=== PATIENT | female | born 1975 | race Caucasian/White ===

== ENCOUNTER 2020-09-05 18:03 | Inpatient (IN) ==
[2020-09-05] MEDS ORDERED: ONDANSETRON INJ 2 MG/ML 2 ML VIAL IV STA (19:28)
[2020-09-05] MEDS ORDERED: SODIUM CHLORIDE 0.9% 1000ML 2,000 ML IV ONE (19:28)
[2020-09-05] MEDS ORDERED: ACETAMINOPHEN 1,000 MG/100 ML VIAL IV STA (19:28)
[2020-09-05] MEDS ORDERED: MoRPHine SULFATE 10 MG/ML CARP/VIAL IV STA (19:28)
[2020-09-05 19:29] LABS: Basophils # (auto) 0.02 K/uL (0-0.2); Basophils % (auto) 0.1 %; Eosinophils # (auto) 0.02 K/uL (0-0.5); Eosinophils % (auto) 0.1 %; Hematocrit (blood only) 35.4 % (37-47); Hemoglobin 12.6 g/dL (12.0-16.0); Immature Granulocytes # (auto) 0.07 K/uL (0.00-0.02); Immature Granulocytes % (auto) 0.4 %; Lymphocytes % (auto) 7.6 %; Mean Corpuscular Hemoglobin 32.9 pg (25-34); Mean Corpuscular Hgb Conc 35.6 g/dL (32-36); Mean Corpuscular Volume 92.4 fL (80-100); Mean Platelet Volume 10.4 fL (7.4-10.4); Monocytes # (auto) 0.83 K/uL (0.11-0.59); Monocytes % (auto) 4.5 %; Neutrophils % (auto) 87.3 %; Platelet Count 407 K/uL (130-400); RDW Coefficient of Variation 12.5 % (11.5-14.5); RDW Standard Deviation 42.8 fL (36.4-46.3); Red Blood Count 3.83 M/uL (4.2-5.4); White Blood Count 18.34 K/uL (4.8-10.8)
[2020-09-05 19:36] LABS: Appearance Urine Clear (Clear); Blood Urine 1+ (Negative); Color Urine Dark Yellow; Epithelial Cell Urine Auto >30 /lpf (0-5); Glucose Urine UA Negative (Negative); Ketones Urine 1+ (Negative); Leukocyte Esterase Urine Negative (Negative); Nitrite Urine Positive (Negative); Protein Urine 1+ (Negative); Specific Gravity Urine 1.039 (1.000-1.030); Urobilinogen Urine Positive (Negative); pH Urine 5.5 (4.5-7.5)
[2020-09-05 19:37] LABS: Bilirubin Urine 1+ (Negative)
[2020-09-05] MEDS ORDERED: MoRPHine SULFATE 2 MG/ML CARP ONE ×3 (19:39→22:03)
--- NOTE | 2020-09-05 19:39 | Emergency Department Note ---
Impression & Plan Hemorrhagic cyst of left ovary, Abnormal vaginal bleeding, Leukocytosis, Elevated lactic acid level ED Provider Note NAME: TERRI FERRARO AGE: 45 SEX: F ARRIVES VIA: Walk-In INFORMANT: Patient, ED PROVIDER(S): Taye Bob MD CHIEF COMPLAINT: Abdominal pain, ovarian cyst. PLAN: Disposition: Admit to OR. MEDICAL DECISION MAKING: The patient is a pleasant 45-year-old woman who presents to the emergency department referred by her PCP for worsening left lower quadrant pain in setting of having increased pain over the past week seen at [facility] [address] and ultrasound performed showing 8 cm left hemorrhagic ovarian cyst where plan was for outpatient [employer] follow-up however she saw her PCP today for worsening symptoms and blood work was performed showing increased white count to 18K up from 14K 2 days ago in the setting of the patient reporting persistent fever over the past several days of 101-102 with waxing and waning left-sided pain and associated nausea. She denies any cough, congestion, diarrhea or urinary symptoms. She reports having early onset of her menstrual cycle which is 2 weeks early with vaginal bleeding that is on par with her typical menstrual cycles where she is using 5-6 tampons daily. Denies any history of vaginal discharge pain or concern for STDs. She reports she has been having irregular cycles over the past 6 months with intermittent pain beginning approximately 2 months ago when per her report smaller several ovarian cysts were seen on the left side at that time. She denies any known COVID-19 exposures. She reports that her understanding is there was concern for possible intermittent ovarian torsion. On arrival the patient is uncomfortable but no acute distress, afebrile with heart rate in the 120s and vital signs otherwise stable. She has mild left lower quadrant/adnexal tenderness without guarding or rebound. WBC 18.3K with neutrophil predominance. Initial lactate 2.4 improved to 1.5, wnl, following IVF hydration and empiric Zosyn. Chemistry without acidosis. Potassium 2.9 with repletion provided. LFTs without significant abnormality. Hcg negative. UA suspicious for infection with nitrites although with epithelial cells present. Covid-19 PCR negative. Influenza and RSV PCR also negative. Case was discussed with Dr. Montilla, OB on-call who the patient had scheduled appointment with next week. We agreed to proceed with pelvic US to reassess shana ent's cyst. US completed and re-demonstrates enlarged left ovary with 7.2 x 8.1 x 8.4 cm complex cystic lesion, suspected to be hemorrhagic cyst. Dr. Montilla was updated and evaluated patient at the bedside. Plan to take patient to OR tonight. Maintenance fluid continued. Patient admitted to OR. Triage Nursing notes reviewed and agree them. Additional history obtained from [facility] records Prior medical records reviewed Vital Signs: reviewed and remarkable for tachycardia. Differential diagnosis: Appendicitis, ovarian cyst, ovarian torsion, ectopic , TOA, PID, infections, diverticulitis, UTI, obstruction, mesenteric ischemia, aortic pathology, inflammatory bowel disease, renal colic, PUD, pancreatitis, biliary pathology, hernia, volvulus, constipation, as well as other pathologies. ER treatment provided: See below. Diagnostics interpreted by me: Cardiac Monitoring: An order for continuous cardiac monitoring was placed and demonstrated sinus tachycardia, 126 bpm, no ectopy. Laboratory studies: See below Imaging studies: STATRAD Preliminary Findings Only See Final Report For Complete Findings US PELVIC/ENDOVAG: Cervical nabothian cyst. Uterus and endometrium are otherwise unremarkable. Normal right ovary. No torsion. Left ovary enlarged by 7.2 x 8.1 x 8.4 cm complex cystic lesion, possibly hemorrhagic cyst. No evidence of left ovarian torsion. Short interval pelvic ultrasound follow-up (6-12 weeks) is recommended to ensure resolution. Mild free pelvic fluid. Radiologist: Elia Alfonso M.D. Consultation(s): Dr. Montlila, OB on-call. HPI: The patient is a pleasant 45-year-old woman who presents to the emergency department referred by her PCP for worsening left lower quadrant pain in setting of having increased pain over the past week seen at [facility] [address] and ultrasound performed showing 8 cm left hemorrhagic ovarian cyst where plan was for outpatient [employer] follow-up however she saw her PCP today for worsening symptoms and blood work was performed showing increased white count to 18K up from 14K 2 days ago in the setting of the patient reporting persistent fever over the past several days of 101-102 with waxing and waning left-sided pain and associated nausea. She denies any cough, congestion, diarrhea or urinary symptoms. She reports having early onset of her menstrual cycle which is 2 weeks early with vaginal bleeding that is on par with her typical menstrual cycles where she is using 5-6 tampons daily. Denies any history of vaginal d ischarge pain or concern for STDs. She reports she has been having irregular cycles over the past 6 months with intermittent pain beginning approximately 2 months ago when per her report smaller several ovarian cysts were seen on the left side at that time. She denies any known COVID-19 exposures. She reports that her understanding is there was concern for possible intermittent ovarian torsion. ROS: See above HPI for pertinent positives & negatives. A total of 10 systems reviewed and were otherwise negative. PAST MEDICAL HISTORY:See Below PAST SURGICAL HISTORY:See Below FAMILY HISTORY:See Below SOCIAL HISTORY:See Below HOME MEDICATIONS:See Below ALLERGIES:See Below VITALS:See Below PHYSICAL EXAMINATION: GENERAL: Awake, alert, uncomfortable-appearing, in no distress HENT: Normocephalic, atraumatic. Oropharynx with dry mucous membranes and otherwise unremarkable. EYES: Normal conjunctiva. Sclera non-icteric. NECK: Supple. No nuchal rigidity. FROM. No JVD. RESPIRATORY: Clear to auscultation. CARDIAC: Tachycardic rate, normal rhythm. Extremities warm and well perfused. Pulses equal. ABDOMEN: Soft, non-distended. Mild LLQ/adnexal tenderness to palpation. No rebound or guarding. No masses. RECTAL: Deferred. MUSCULOSKELETAL: Chest examination reveals no tenderness. The back is symmetrical on inspection without obvious abnormality. There is no CVA tenderness to palpation. No joint edema. LOWER EXTREMITIES: Calves are equal size bilaterally and non-tender. No edema. No discoloration. NEURO: Normal sensorium. No sensory or motor deficits noted. SKIN: No rash or jaundice noted. ED COURSE: Critical Care: I have personally spent greater than 45 minutes of critical care time in the direct management of this patient. This includes bedside care, interpretation of diagnostic studies, and testing, discussion with consultants, patient, and family members, and other required patient management activities. This 45 minutes is in excess of all separately billable procedures. Taye Bob MD Past Med/Surg History Medical History Abnormal vaginal bleeding Dilated pancreatic duct Hemorrhagic cyst of left ovary Surgical History History of oral surgery Family History Father Myocardial infarction Afib Mother Diabetes Osteoporosis Hypertension Dyslipidemia Stroke Grandfather Myocardial infarction Denies family history of Ovarian cancer Prostate cancer Breast cancer Colorectal cancer Social History Smoking Status: Current every day smoker Tobacco Type: Cigarettes and E-cigarettes / Vaping Hx Alcohol Use: No Hx Substance Use: No Preferred Language: Frisian Communication Ability: Effective Visual Impairment: No Limitations Hearing Ability: Normal [place] Paver Required: No marital status: Current Living Situation: Family Current Living Situation Comment: mom, and daughter current occupational status: employed 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 [employer] Feels Safe at Home: Yes Dental Care, Regularly: No Seatbelt Use: always Sunscreen Use: No Allergies Allergies Allergy/AdvReac Type Severity Reaction Status Date / Time pramipexole [From Mirapex] Allergy Unknown Verified 09/05/20 19:33 Home Meds Home Medications Medication Instructions Recorded Confirmed acetaminophen [Tylenol Extra 1,000 mg PO Q6H PRN 09/05/20 09/05/20 Strength] Previous Rx's Medication Instructions Recorded ondansetron HCl 4 mg tablet 4 mg PO Q8H PRN #30 tab 06/15/20 Results & Data (ED) Vital Signs Vital Signs - 24 hr 09/05/20 18:13 09/05/20 19:37 09/05/20 19:40 Temperature 37.4 C Temperature Source Temporal Artery Scan Pulse Rate 126 H 112 H 113 H Pulse Rate [Apical] Pulse Rate from SpO2 Sensor 113 H 112 H Respiratory Rate 18 22 19 Respiratory Effort / Characteristics Non-Labored Respiratory Depth Normal Blood Pressure 158/82 H 126/91 Blood Pressure [Left Arm] Blood Pressure Mean 107 102 Blood Pressure Mean [Left Arm] Blood Pressure Position Sitting Blood Pressure Position [Left Arm] Pulse Oximetry 99 99 98 Oxygen Delivery Method Room Air Room Air Room Air Oxygen Flow Rate Sepsis Recent Fever Within 48 Hours Yes Sepsis New/Unexplained Change in Mental Status No Sepsis Action Taken by Nursing No Action Required 09/05/20 19:50 09/05/20 20:00 09/05/20 20:01 Temperature Temperature Source Pulse Rate 115 H 111 H 112 H Pulse Rate [Apical] Pulse Rate from SpO2 Sensor 115 H Respiratory Rate 28 H 29 H 23 Respiratory Effort / Characteristics Respiratory Depth Blood Pressure 125/83 Blood Pressure [Left Arm] Blood Pressure Mean 97 Blood Pressure Mean [Left Arm] Blood Pressure Position Blood Pressure Position [Left Arm] Pulse Oximetry 98 Oxygen Delivery Method Room Air Room Air Room Air Oxygen Flow Rate Sepsis Recent Fever Within 48 Hours Sepsis New/Unexplained Change in Mental Status Sepsis Action Taken by Nursing 09/05/20 20:10 09/05/20 20:20 09/05/20 20:30 Temperature Temperature Source Pulse Rate 117 H 114 H 112 H Pulse Rate [Apical] Pulse Rate from SpO2 Sensor 118 H 111 H Respiratory Rate 24 33 H 25 H Respiratory Effort / Characteristics Respiratory Depth Blood Pressure 119/71 Blood Pressure [Left Arm] Blood Pressure Mean 87 Blood Pressure Mean [Left Arm] Blood Pressure Position Blood Pressure Position [Left Arm] Pulse Oximetry 98 100 Oxygen Delivery Method Room Air Room Air Room Air Oxygen Flow Rate Sepsis Recent Fever Within 48 Hours Sepsis New/Unexplained Change in Mental Status Sepsis Action Taken by Nursing 09/05/20 20:40 09/05/20 20:50 09/05/20 21:00 Temperature Temperature Source Pulse Rate 109 H 106 H 111 H Pulse Rate [Apical] Pulse Rate from SpO2 Sensor 109 H 106 H 111 H Respiratory Rate 27 H 18 22 Respiratory Effort / Characteristics Respiratory Depth Blood Pressure 108/68 Blood Pressure [Left Arm] Blood Pressure Mean 81 Blood Pressure Mean [Left Arm] Blood Pressure Position Blood Pressure Position [Left Arm] Pulse Oximetry 98 98 98 Oxygen Delivery Method Room Air Room Air Room Air Oxygen Flow Rate Sepsis Recent Fever Within 48 Hours Sepsis New/Unexplained Change in Mental Status Sepsis Action Taken by Nursing 09/05/20 21:59 09/05/20 22:00 09/05/20 22:10 Temperature Temperature Source Pulse Rate 106 H 105 H 107 H Pulse Rate [Apical] Pulse Rate from SpO2 Sensor 104 H 107 H Respiratory Rate 26 H 24 Respiratory Effort / Characteristics Respiratory Depth Blood Pressure 107/65 Blood Pressure [Left Arm] Blood Pressure Mean 79 Blood Pressure Mean [Left Arm] Blood Pressure Position Blood Pressure Position [Left Arm] Pulse Oximetry 98 98 Oxygen Delivery Method Room Air Room Air Room Air Oxygen Flow Rate Sepsis Recent Fever Within 48 Hours Sepsis New/Unexplained Change in Mental Status Sepsis Action Taken by Nursing 09/05/20 22:20 09/05/20 22:30 09/05/20 22:31 Temperature Temperature Source Pulse Rate 104 H 102 H 99 H Pulse Rate [Apical] Pulse Rate from SpO2 Sensor 105 H 102 H 99 H Respiratory Rate 21 24 15 Respiratory Effort / Characteristics Respiratory Depth Blood Pressure 113/79 Blood Pressure [Left Arm] Blood Pressure Mean 90 Blood Pressure Mean [Left Arm] Blood Pressure Position Blood Pressure Position [Left Arm] Pulse Oximetry 98 99 99 Oxygen Delivery Method Room Air Room Air Room Air Oxygen Flow Rate Sepsis Recent Fever Within 48 Hours Sepsis New/Unexplained Change in Mental Status Sepsis Action Taken by Nursing 09/05/20 22:40 09/05/20 22:50 09/05/20 23:00 Temperature Temperature Source Pulse Rate 107 H 109 H 105 H Pulse Rate [Apical] Pulse Rate from SpO2 Sensor 107 H 110 H 109 H Respiratory Rate 21 19 34 H Respiratory Effort / Characteristics Respiratory Depth Blood Pressure 105/78 Blood Pressure [Left Arm] Blood Pressure Mean 87 Blood Pressure Mean [Left Arm] Blood Pressure Position Blood Pressure Position [Left Arm] Pulse Oximetry 99 99 99 Oxygen Delivery Method Room Air Room Air Room Air Oxygen Flow Rate Sepsis Recent Fever Within 48 Hours Sepsis New/Unexplained Change in Mental Status Sepsis Action Taken by Nursing 09/05/20 23:01 09/06/20 01:09 09/06/20 03:36 Temperature 36.8 C Temperature Source Oral Pulse Rate 108 H 101 H Pulse Rate [Apical] 149 H Pulse Rate from SpO2 Sensor 109 H Respiratory Rate 28 H 16 30 H Respiratory Effort / Characteristics Respiratory Depth Blood Pressure 100/71 Blood Pressure [Left Arm] 152/109 H Blood Pressure Mean Blood Pressure Mean [Left Arm] 123 Blood Pressure Position Blood Pressure Position [Left Arm] Lying Pulse Oximetry 98 99 92 Oxygen Delivery Method Room Air Room Air Oxygen Flow Rate 6 Sepsis Recent Fever Within 48 Hours Sepsis New/Unexplained Change in Mental Status Sepsis Action Taken by Nursing 09/06/20 03:42 09/06/20 03:52 09/06/20 04:02 Temperature 36.8 C Temperature Source Oral Oral Pulse Rate Pulse Rate [Apical] 142 H 146 H 140 H Pulse Rate from SpO2 Sensor Respiratory Rate 25 H 24 24 Respiratory Effort / Characteristics Respiratory Depth Blood Pressure Blood Pressure [Left Arm] 161/115 H 166/90 H 159/98 H Blood Pressure Mean Blood Pressure Mean [Left Arm] 130 115 118 Blood Pressure Position Blood Pressure Position [Left Arm] Lying Lying Lying Pulse Oximetry 89 L 91 91 Oxygen Delivery Method Oxygen Flow Rate 6 6 6 Sepsis Recent Fever Within 48 Hours Sepsis New/Unexplained Change in Mental Status Sepsis Action Taken by Nursing 09/06/20 04:22 09/06/20 04:37 09/06/20 05:00 Temperature 36.7 C Temperature Source Oral Oral Pulse Rate Pulse Rate [Apical] 139 H 131 H Pulse Rate from SpO2 Sensor Respiratory Rate 24 24 24 Respiratory Effort / Characteristics Respiratory Depth Blood Pressure Blood Pressure [Left Arm] 144/89 H 139/80 128/72 Blood Pressure Mean Blood Pressure Mean [Left Arm] 107 99 90 Blood Pressure Position Blood Pressure Position [Left Arm] Sitting Lying Lying Pulse Oximetry 89 L 91 95 Oxygen Delivery Method Oxygen Flow Rate 6 4 Sepsis Recent Fever Within 48 Hours Sepsis New/Unexplained Change in Mental Status Sepsis Action Taken by Nursing Laboratory Data Result diagrams: 09/05/20 19:17 09/05/20 19:17 Lab Results 09/05/20 09/05/20 09/05/20 Range/Units 19:17 19:17 19:17 WBC 18.34 H (4.8-10.8) K/uL RBC 3.83 L (4.2-5.4) M/uL Hgb 12.6 (12.0-16.0) g/dL Hct 35.4 L (37-47) % MCV 92.4 (80-100) fL MCH 32.9 (25-34) pg MCHC 35.6 (32-36) g/dL RDW Std Deviation 42.8 (36.4-46.3) fL RDW Coeff of Herberth 12.5 (11.5-14.5) % Plt Count 407 H (130-400) K/uL MPV 10.4 (7.4-10.4) fL Immature Gran % (Auto) 0.4 % Neut % (Auto) 87.3 % Lymph % (Auto) 7.6 % Slope % (Auto) 4.5 % Eos % (Auto) 0.1 % Baso % (Auto) 0.1 % Neut # (Auto) 16.00 H (1.4-6.5) K/uL Lymph # (Auto) 1.40 (1.2-3.4) K/uL Slope # (Auto) 0.83 H (0.11-0.59) K/uL Eos # (Auto) 0.02 (0-0.5) K/uL Baso # (Auto) 0.02 (0-0.2) K/uL Immature Gran # (Auto) 0.07 H (0.00-0.02) K/uL Sodium 140 (136-145) mmol/L Potassium 2.9 L (3.5-5.1) mmol/L Chloride 105 (98-107) mmol/L Carbon Dioxide 28 (21-32) mmol/L Anion Gap 7.0 (3-11) BUN 10 (7-18) mg/dl Creatinine 0.77 (0.6-1.2) mg/dl Est Cr Clr Drug Dosing 73.1 ml/min Est GFR ( Amer) 106.6 Est GFR (Non-Af Amer) 91.9 BUN/Creatinine Ratio 12.5 (10-20) Glucose 90 (70-99) mg/dl Lactate (0.4-2.0) mmol/L Calcium 8.6 (8.5-10.1) mg/dl Total Bilirubin 0.4 (0.2-1) mg/dl AST 8 L (15-37) U/L ALT 13 (12-78) U/L Alkaline Phosphatase 114 (45-117) U/L Total Protein 8.0 (6.4-8.2) gm/dl Albumin 2.7 L (3.4-5.0) gm/dl Globulin 5.3 H (2.5-4.0) gm/dl Albumin/Globulin Ratio 0.5 L (0.9-2) HCG, Qual (Negative) Urine Color Dark Yellow Urine Appearance Clear (Clear) Urine pH 5.5 (4.5-7.5) Ur Specific [place] 1.039 H (1.000-1.030) Urine Protein 1+ H (Negative) Urine Glucose (UA) Negative (Negative) Urine Ketones 1+ H (Negative) Urine Blood 1+ H (Negative) Urine Nitrite Positive A (Negative) Urine Bilirubin 1+ H (Negative) Urine Urobilinogen Positive H (Negative) Ur Leukocyte Esterase Negative (Negative) Urine WBC (Auto) 5-10 H (0-5) /hpf Urine RBC (Auto) 5-10 H (0-4) /hpf U Hyaline Cast (Auto) 10-30 H (0-5) /lpf U Epithel Cells (Auto) >30 H (0-5) /lpf Urine Bacteria (Auto) 1+ H (Negative) Ur Renal Epithelial Cell Not Reportable Urine Mucus Present A (None Prsent) POC Ur Test (NEG) COVID-19 Eval Order SARS-CoV-2 (PCR) (Negative) Influenza Type A (PCR) (Neg) Influenza Type B (PCR) (Neg) RSV (RT-PCR) (Neg) 09/05/20 09/05/20 09/05/20 Range/Units 19:17 19:17 20:25 WBC (4.8-10.8) K/uL RBC (4.2-5.4) M/uL Hgb (12.0-16.0) g/dL Hct (37-47) % MCV (80-100) fL MCH (25-34) pg MCHC (32-36) g/dL RDW Std Deviation (36.4-46.3) fL RDW Coeff of Herberth (11.5-14.5) % Plt Count (130-400) K/uL MPV (7.4-10.4) fL Immature Gran % (Auto) % Neut % (Auto) % Lymph % (Auto) % Slope % (Auto) % Eos % (Auto) % Baso % (Auto) % Neut # (Auto) (1.4-6.5) K/uL Lymph # (Auto) (1.2-3.4) K/uL Slope # (Auto) (0.11-0.59) K/uL Eos # (Auto) (0-0.5) K/uL Baso # (Auto) (0-0.2) K/uL Immature Gran # (Auto) (0.00-0.02) K/uL Sodium (136-145) mmol/L Potassium (3.5-5.1) mmol/L Chloride (98-107) mmol/L Carbon Dioxide (21-32) mmol/L Anion Gap (3-11) BUN (7-18) mg/dl Creatinine (0.6-1.2) mg/dl Est Cr Clr Drug Dosing ml/min Est GFR ( Amer) Est GFR (Non-Af Amer) BUN/Creatinine Ratio (10-20) Glucose (70-99) mg/dl Lactate 2.4 H* (0.4-2.0) mmol/L Calcium (8.5-10.1) mg/dl Total Bilirubin (0.2-1) mg/dl AST (15-37) U/L ALT (12-78) U/L Alkaline Phosphatase (45-117) U/L Total Protein (6.4-8.2) gm/dl Albumin (3.4-5.0) gm/dl Globulin (2.5-4.0) gm/dl Albumin/Globulin Ratio (0.9-2) HCG, Qual Negative (Negative) Urine Color Urine Appearance (Clear) Urine pH (4.5-7.5) Ur Specific [place] (1.000-1.030) Urine Protein (Negative) Urine Glucose (UA) (Negative) Urine Ketones (Negative) Urine Blood (Negative) Urine Nitrite (Negative) Urine Bilirubin (Negative) Urine Urobilinogen (Negative) Ur Leukocyte Esterase (Negative) Urine WBC (Auto) (0-5) /hpf Urine RBC (Auto) (0-4) /hpf U Hyaline Cast (Auto) (0-5) /lpf U Epithel Cells (Auto) (0-5) /lpf Urine Bacteria (Auto) (Negative) Ur Renal Epithelial Cell Urine Mucus (None Prsent) POC Ur Test NEG (NEG) COVID-19 Eval Order SARS-CoV-2 (PCR) (Negative) Influenza Type A (PCR) (Neg) Influenza Type B (PCR) (Neg) RSV (RT-PCR) (Neg) 09/05/20 09/05/20 09/05/20 Range/Units 21:59 21:59 22:14 WBC (4.8-10.8) K/uL RBC (4.2-5.4) M/uL Hgb (12.0-16.0) g/dL Hct (37-47) % MCV (80-100) fL MCH (25-34) pg MCHC (32-36) g/dL RDW Std Deviation (36.4-46.3) fL RDW Coeff of Herberth (11.5-14.5) % Plt Count (130-400) K/uL MPV (7.4-10.4) fL Immature Gran % (Auto) % Neut % (Auto) % Lymph % (Auto) % Slope % (Auto) % Eos % (Auto) % Baso % (Auto) % Neut # (Auto) (1.4-6.5) K/uL Lymph # (Auto) (1.2-3.4) K/uL Slope # (Auto) (0.11-0.59) K/uL Eos # (Auto) (0-0.5) K/uL Baso # (Auto) (0-0.2) K/uL Immature Gran # (Auto) (0.00-0.02) K/uL Sodium (136-145) mmol/L Potassium (3.5-5.1) mmol/L Chloride (98-107) mmol/L Carbon Dioxide (21-32) mmol/L Anion Gap (3-11) BUN (7-18) mg/dl Creatinine (0.6-1.2) mg/dl Est Cr Clr Drug Dosing ml/min Est GFR ( Amer) Est GFR (Non-Af Amer) BUN/Creatinine Ratio (10-20) Glucose (70-99) mg/dl Lactate 1.5 (0.4-2.0) mmol/L Calcium (8.5-10.1) mg/dl Total Bilirubin (0.2-1) mg/dl AST (15-37) U/L ALT (12-78) U/L Alkaline Phosphatase (45-117) U/L Total Protein (6.4-8.2) gm/dl Albumin (3.4-5.0) gm/dl Globulin (2.5-4.0) gm/dl Albumin/Globulin Ratio (0.9-2) HCG, Qual (Negative) Urine Color Urine Appearance (Clear) Urine pH (4.5-7.5) Ur Specific [place] (1.000-1.030) Urine Protein (Negative) Urine Glucose (UA) (Negative) Urine Ketones (Negative) Urine Blood (Negative) Urine Nitrite (Negative) Urine Bilirubin (Negative) Urine Urobilinogen (Negative) Ur Leukocyte Esterase (Negative) Urine WBC (Auto) (0-5) /hpf Urine RBC (Auto) (0-4) /hpf U Hyaline Cast (Auto) (0-5) /lpf U Epithel Cells (Auto) (0-5) /lpf Urine Bacteria (Auto) (Negative) Ur Renal Epithelial Cell Urine Mucus (None Prsent) POC Ur Test (NEG) COVID-19 Eval Order [facility]sv at [facility] SARS-CoV-2 (PCR) NEGATIVE (Negative) Influenza Type A (PCR) Negative (Neg) Influenza Type B (PCR) Negative (Neg) RSV (RT-PCR) Negative (Neg) Administered Medications Discontinued Medications Bupivacaine HCl (Bupivacaine 0.5 % 5 Mg/1 Ml Mpf 30ml Vial) Confirm Administered Dose 30 ml .ROUTE .STK-MED ONE Stop: 09/06/20 01:30 Last Admin: 09/06/20 03:20 Dose: 10 ml Documented by: [id number] Sodium Chloride (Nss 1000ml) 2,000 mls @ 999 mls/hr IV .Q2H1M ONE Stop: 09/05/20 21:28 Last Infusion: 09/05/20 22:00 Dose: 0 mls/hr Documented by: [id number] Admin: 09/05/20 20:09 Dose: 999 mls/hr Documented by: [id number] Acetaminophen (Ofirmev) 1,000 mg in 100 mls @ 400 mls/hr IV NOW STA Stop: 09/05/20 19:42 Last Infusion: 09/05/20 20:11 Dose: 0 mls/hr Documented by: [id number] Admin: 09/05/20 19:40 Dose: 400 mls/hr Documented by: [id number] Piperacillin Sod/Tazobactam Sod (Zosyn) 4.5 gm in 120 mls @ 240 mls/hr IV NOW ONE Stop: 09/05/20 20:12 Last Infusion: 09/05/20 21:31 Dose: 0 mls/hr Documented by: [id number] Admin: 09/05/20 20:55 Dose: 240 mls/hr Documented by: [id number] Potassium Chloride (K Kirill / Wtr) 10 meq in 100 mls @ 100 mls/hr IV Q1H JOSE Stop: 09/05/20 23:44 Last Infusion: 09/06/20 00:27 Dose: 0 mls/hr Documented by: [id number] Admin: 09/05/20 23:07 Dose: 100 mls/hr Documented by: [id number] Infusion: 09/05/20 23:04 Dose: 100 mls/hr Documented by: [id number] Admin: 09/05/20 22:04 Dose: 100 mls/hr Documented by: [id number] Potassium Chloride (K Kirill / Wtr) 10 meq in 100 mls @ 100 mls/hr IV Q1H [facility] Stop: 09/06/20 01:29 Last Admin: 09/06/20 00:28 Dose: Not Given Documented by: [id number] Miscellaneous Information (Piperacill/Tazobac Consult Active) 1 ea N/A UD PRN PRN Reason: Consult Stop: 10/05/20 19:42 Last Admin: 09/05/20 20:55 Dose: 1 ea Documented by: [id number] Morphine Sulfate (Morphine Sulfate 10 Mg/Ml Carp/Vial) 6 mg IV NOW STA Stop: 09/05/20 19:29 Last Admin: 09/05/20 20:12 Dose: Not Given Documented by: [id number] Morphine Sulfate (Morphine Sulfate 2 Mg/Ml Carp) Confirm Administered Dose 2 mg .ROUTE .STK-MED ONE Stop: 09/05/20 19:40 Last Admin: 09/05/20 19:40 Dose: 2 mg Documented by: [id number] Morphine Sulfate (Morphine Sulfate 2 Mg/Ml Carp) Confirm Administered Dose 2 mg .ROUTE .STK-MED ONE Stop: 09/05/20 20:07 Last Admin: 09/05/20 20:08 Dose: 2 mg Documented by: [id number] Morphine Sulfate (Morphine Sulfate 2 Mg/Ml Carp) Confirm Administered Dose 2 mg .ROUTE .STK-MED ONE Stop: 09/05/20 22:04 Last Admin: 09/05/20 22:03 Dose: 2 mg Documented by: [id number] Ondansetron HCl (Ondansetron Inj 2 Mg/Ml 2 Ml Vial) 4 mg IV NOW STA Stop: 09/05/20 19:29 Last Admin: 09/05/20 19:40 Dose: 4 mg Documented by: [id number] Discharge Plan Visit Data Chief Complaint: Illness Stated Complaint: CYST ED Provider: Taye Bob Discharge Problem: Hemorrhagic cyst of left ovary, Abnormal vaginal bleeding, Leukocytosis, Elevated lactic acid level Patient Disposition: Still a Patient Discharge Instructions Interventions: ED Discharge Assessment Last Done: 09/06/20 01:09 Discharge Problem: Leukocytosis Qualifiers: Leukocytosis type: unspecified Qualified Code(s): D72.829 - Elevated white blood cell count, unspecified
[2020-09-05] MEDS ORDERED: PIPERACILL/TAZOBAC CONSULT ACTIVE PRN (19:43)
[2020-09-05] MEDS ORDERED: PIPERACILLIN/TAZOBACTAM 4.5 GM/120 ML BAG IV ONE (19:43)
[2020-09-05 19:47] LABS: Albumin Level 2.7 gm/dl (3.4-5.0); BUN Creatinine Ratio 12.5 (10-20); Calcium 8.6 mg/dl (8.5-10.1); Creatinine Clr Calc Pharmacy 73.1 ml/min; Est GFR (African American) 106.6; Est GFR (Non-African American) 91.9; Potassium 2.9 mmol/L (3.5-5.1)
[2020-09-05 19:50] LABS: Albumin Globulin Ratio 0.5 (0.9-2); Bilirubin,Total 0.4 mg/dl (0.2-1); Globulin 5.3 gm/dl (2.5-4.0)
[2020-09-05 19:55] LABS: Mucus Urine Present (None Prsent)
[2020-09-05 19:56] LABS: Bacteria Urine Automated 1+ (Negative)
[2020-09-05 20:25] LABS: Pregnancy Test, Serum Negative (Negative)
[2020-09-05] MEDS: POTASSIUM CHLORIDE / WTR 10 MEQ/100 ML PLCT IV SCH ×2 (22:04→23:07)
[2020-09-05 22:41] LABS: Influenza A virus by PCR Negative (Neg); Influenza B virus by PCR Negative (Neg); RSV by PCR Negative (Neg); SARS CoV2 RNA(COVID-19) InHosp NEGATIVE (Negative)
[2020-09-05] MEDS ORDERED: LACTATED RINGER'S 1,000 ML IV SCH (23:30)
--- NOTE | 2020-09-05 23:37 | OB/GYN Consultation ---
Date of Consultation September 05, 2020 Assessment & Plan (1) Hemorrhagic cyst of left ovary: I reviewed imaging reports and clinical presentation with patient. We discussed my concerns that this could be an ovarian torsion, intermittently torsing. The size of the cyst, severity of pain, elevated WBC, tachycardia are all concerning for this being a torsing ovary with potential for necrosis of tissue. Alternatively, this is possibly just a hemorrhagic cyst that has grown quite large and is therefore painful, and the leukocytosis may be unrelated. She is aware that there is a possibility that surgical intervention may not solve all of these problems. We discussed my recommendation for laparoscopic removal of left ovary with possibility of conversion to open. Reviewed consent [id number], discussed risks/alternatives/benefits. Risks include bleeding, infection, pain, scarring, damage to surrounding organs, blood clot. Patient agreeable to surgery. Questions answered. Will plan to proceed to OR. History of Present Illness Reason for Consultation: LLQ pain Requesting Physician: Dr Bob Attending Physician: Dr Bob History of Present Illness 45yo G0 presents with persistent LLQ pain. LMP last , has had worsening LLQ pain over the past week or so. Had known small left ovarian cysts seen on US 06/2020. Pain became severe 2 days ago, presented to [facility], finding of 8cm ovarian cyst, appeared to be hemorrhagic cyst. She was recommended for outpatient followup, and then presented to her PCP earlier today. PCP ordered labs and recommended patient to come to [facility] ER because of worsening pain and WBC 14. Upon arrival to ER, WBC 18. Patient reports she has had severe LLQ pain, it waxes and wanes. Sometimes feels like sharp stabbing pain, other times improves. Describes it feeling like a knife. Prior to this episode, has never felt pain like this before. Also with nausea, vomiting. Has not eaten food since last week. Increased frequency of urination, but no pain with urination. Reports fevers 102 over the past few days. 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 No history of gynecologic problems in the past. No history of STI. No abnormal pap smears. Female partner. Allergies Allergy/AdvReac Type Severity Reaction Status Date / Time pramipexole [From Mirapex] Allergy Unknown Verified 09/05/20 19:33 Home Medications Medication Instructions Recorded Confirmed Type ondansetron HCl 4 mg tablet 4 mg PO Q8H PRN #30 tab 06/15/20 09/05/20 Rx acetaminophen [Tylenol Extra 1,000 mg PO Q6H PRN 09/05/20 09/05/20 History Strength] Patient History Medical History Abnormal vaginal bleeding Dilated pancreatic duct Hemorrhagic cyst of left ovary Surgical History History of oral surgery Family History Father Myocardial infarction Afib Mother Diabetes Osteoporosis Hypertension Dyslipidemia Stroke Grandfather Myocardial infarction Denies family history of Ovarian cancer Prostate cancer Breast cancer Colorectal cancer Social History Smoking Status: Current every day smoker Tobacco Type: Cigarettes and E-cigarettes / Vaping Hx Alcohol Use: No Hx Substance Use: No Preferred Language: [place] Islander Communication Ability: Effective Visual Impairment: No Limitations Hearing Ability: Normal Occupational Health Coordinator Required: No marital status: Current Living Situation: Family Current Living Situation Comment: mom, and daughter current occupational status: employed 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 Skin: normal skin color and pigmentation, normal skin turgor and no rash. Neck: the appearance of the neck was normal, no neck mass was observed Pulmonary: no respiratory distress, normal respiratory rhythm and effort and clear bilateral breath sounds. Cardiovascular: heart rate and rhythm were normal, normal S1 and S2 and no murmurs present. Abdomen: soft, mild left abdominal tenderness, no rebound, no guarding. Neurological: The patient was oriented to person, place, and time. Mood and affect were appropriate. Extremities: No edema, no calf tenderness. Results & Data ([facility]) Vital Signs (Past 12 Hours) Vital Signs Temp Pulse Resp BP Pulse Ox 09/05/20 23:01 108 H 28 H 98 09/05/20 23:00 105 H 34 H 105/78 99 09/05/20 22:50 109 H 19 99 09/05/20 22:40 107 H 21 99 09/05/20 22:31 99 H 15 99 09/05/20 22:30 102 H 24 113/79 99 09/05/20 22:20 104 H 21 98 09/05/20 22:10 107 H 24 98 09/05/20 22:00 105 H 26 H 107/65 98 09/05/20 21:59 106 H 09/05/20 21:00 111 H 22 108/68 98 09/05/20 20:50 106 H 18 98 09/05/20 20:40 109 H 27 H 98 09/05/20 20:30 112 H 25 H 119/71 100 09/05/20 20:20 114 H 33 H 09/05/20 20:10 117 H 24 98 09/05/20 20:01 112 H 23 09/05/20 20:00 111 H 29 H 125/83 09/05/20 19:50 115 H 28 H 98 09/05/20 19:40 113 H 19 98 09/05/20 19:37 112 H 22 126/91 99 09/05/20 18:13 37.4 C 126 H 18 158/82 H 99 PG Care Time/CCT Total # of Minutes Spent Total Time Spent with Patient: Total time spent is greater than 50% in coordination of care (as documented) at patient's floor/unit and/or counseling patient: Coding Level of Care Code 03966 Office/OBS Consult Lvl 4 Diagnoses Hemorrhagic cyst of left ovary N83.202
--- NOTE | 2020-09-06 00:04 | History & Physical Report ---
Date of Service September 06, 2020 Assessment & Plan (1) Hemorrhagic cyst of left ovary: I reviewed imaging reports and clinical presentation with patient. We discussed my concerns that this could be an ovarian torsion, intermittently torsing. The size of the cyst, severity of pain, elevated WBC, tachycardia are all concerning for this being a torsing ovary with potential for necrosis of tissue. Alternatively, this is possibly just a hemorrhagic cyst that has grown quite large and is therefore painful, and the leukocytosis may be unrelated. She is aware that there is a possibility that surgical intervention may not solve all of these problems. We discussed my recommendation for laparoscopic removal of left ovary with possibility of conversion to open. Reviewed consent [id number], discussed risks/alternatives/benefits. Risks include bleeding, infection, pain, scarring, damage to surrounding organs, blood clot. Patient agreeable to surgery. Questions answered. Will plan to proceed to OR. History of Present Illness Chief Complaint: LLQ pain Primary Care Provider: Pallavi Albarran, DO 45yo G0 presents with persistent LLQ pain. LMP last , has had worsening LLQ pain over the past week or so. Had known small left ovarian cysts seen on US 06/2020. Pain became severe 2 days ago, presented to [facility], finding of 8cm ovarian cyst, appeared to be hemorrhagic cyst. She was recommended for outpatient followup, and then presented to her PCP earlier today. PCP ordered labs and recommended patient to come to [facility] ER because of worsening pain and WBC 14. Upon arrival to ER, WBC 18. Patient reports she has had severe LLQ pain, it waxes and wanes. Sometimes feels like sharp stabbing pain, other times improves. Describes it feeling like a knife. Prior to this episode, has never felt pain like this before. Also with nausea, vomiting. Has not eaten food since last week. Increased frequency of urination, but no pain with urination. Reports fevers 102 over the past few days. 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 No history of gynecologic problems in the past. No history of STI. No abnormal pap smears. Female partner. Allergies Allergy/AdvReac Type Severity Reaction Status Date / Time pramipexole [From Mirapex] Allergy Unknown Verified 09/05/20 19:33 Home Medications Medication Instructions Recorded Confirmed Type ondansetron HCl 4 mg tablet 4 mg PO Q8H PRN #30 tab 06/15/20 09/05/20 Rx acetaminophen [Tylenol Extra 1,000 mg PO Q6H PRN 09/05/20 09/05/20 History Strength] Patient History Medical History Abnormal vaginal bleeding Dilated pancreatic duct Hemorrhagic cyst of left ovary Surgical History History of oral surgery Family History Father Myocardial infarction Afib Mother Diabetes Osteoporosis Hypertension Dyslipidemia Stroke Grandfather Myocardial infarction Denies family history of Ovarian cancer Prostate cancer Breast cancer Colorectal cancer Social History Smoking Status: Current every day smoker Tobacco Type: Cigarettes and E-cigarettes / Vaping Hx Alcohol Use: No Hx Substance Use: No Preferred Language: Slovak Communication Ability: Effective Visual Impairment: No Limitations Hearing Ability: Normal Lease Administration Analyst Required: No marital status: Current Living Situation: Family Current Living Situation Comment: mom, and daughter current occupational status: employed 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 Skin: normal skin color and pigmentation, normal skin turgor and no rash. Neck: the appearance of the neck was normal, no neck mass was observed Pulmonary: no respiratory distress, normal respiratory rhythm and effort and clear bilateral breath sounds. Cardiovascular: heart rate and rhythm were normal, normal S1 and S2 and no murmurs present. Abdomen: soft, mild left abdominal tenderness, no rebound, no guarding. Neurological: The patient was oriented to person, place, and time. Mood and affect were appropriate. Extremities: No edema, no calf tenderness. Results & Data ([facility]) Vital Signs (Past 12 Hours) Vital Signs Temp Pulse Resp BP Pulse Ox 09/05/20 23:01 108 H 28 H 98 09/05/20 23:00 105 H 34 H 105/78 99 09/05/20 22:50 109 H 19 99 09/05/20 22:40 107 H 21 99 09/05/20 22:31 99 H 15 99 09/05/20 22:30 102 H 24 113/79 99 09/05/20 22:20 104 H 21 98 09/05/20 22:10 107 H 24 98 09/05/20 22:00 105 H 26 H 107/65 98 09/05/20 21:59 106 H 09/05/20 21:00 111 H 22 108/68 98 09/05/20 20:50 106 H 18 98 09/05/20 20:40 109 H 27 H 98 09/05/20 20:30 112 H 25 H 119/71 100 09/05/20 20:20 114 H 33 H 09/05/20 20:10 117 H 24 98 09/05/20 20:01 112 H 23 09/05/20 20:00 111 H 29 H 125/83 09/05/20 19:50 115 H 28 H 98 09/05/20 19:40 113 H 19 98 09/05/20 19:37 112 H 22 126/91 99 09/05/20 18:13 37.4 C 126 H 18 158/82 H 99 Coding Level of Care Code None Diagnoses Hemorrhagic cyst of left ovary N83.202
[2020-09-06] MEDS: POTASSIUM CHLORIDE / WTR 10 MEQ/100 ML PLCT IV SCH ×2 (00:28→06:28)
--- NOTE | 2020-09-06 01:15 | Anesthesiology Consultation ---
Date of Service September 06, 2020 Assessment & Plan (1) Encounter for pre-operative examination: Chart Review Chart Review: Acceptable Risk for Surgery and Patient NOT seen in Pre Admission Testing Consults Requested none ASA [id number] Proposed Anesthesia Anesthesia Type: General Risk / Benefits Reviewed With: PT / POA / Parent / Guardian, Accepts Plan and Informed Consent Obtained History Height/Weight Height: 5 ft Weight: 60 kg Allergies Allergy/AdvReac Type Severity Reaction Status Date / Time pramipexole [From Mirapex] Allergy Unknown Verified 09/05/20 19:33 Medications Home Medications Medication Instructions Recorded Confirmed Last Taken ondansetron HCl 4 mg tablet 4 mg PO Q8H PRN #30 tab 06/15/20 09/05/20 Unknown acetaminophen [Tylenol Extra 1,000 mg PO Q6H PRN 09/05/20 09/05/20 09/05/20 Strength] Active Medications Generic Name Dose Route Start Last Admin Trade Name Freq PRN Reason Stop Dose Admin Potassium Chloride 10 meq in 100 mls @ 100 mls/hr 09/05/20 23:30 09/06/20 00:28 K Kirill / Wtr IV 09/06/20 01:29 Not Given Q1H JOSE Miscellaneous Information 1 ea 09/05/20 19:43 09/05/20 20:55 Piperacill/Tazobac Consult Active N/A 10/05/20 19:42 1 ea UD PRN Administration Consult NPO Date Last Intake of Fluids: 09/05/20 Time Last Intake of Fluids: 20:00 Date Last Intake of Solids: 09/04/20 Time Last Intake of Solids: 19:00 Last Intake of Solids Comment: egg salad Past Medical History Medical History Abnormal vaginal bleeding Dilated pancreatic duct Hemorrhagic cyst of left ovary Exercise / Class Metabolic Activity II 4-5 Yardwork/Stairs/Walk up hill Past Family History Family History Father Myocardial infarction Afib Mother Diabetes Osteoporosis Hypertension Dyslipidemia Stroke Grandfather Myocardial infarction Denies family history of Ovarian cancer Prostate cancer Breast cancer Colorectal cancer Past Surgical History Surgical History History of oral surgery Past Anesthesia History No Hx of Anesthesia Complications and No Family Hx of Anesthesia Complications History of PONV No Hx of PONV and No Hx of Motion Sickness Social History Smoking Status: Current every day smoker Hx Alcohol Use: No Hx Substance Use: No Physical Exam Vital Signs Last Vital Signs Temp 37.4 C 09/05/20 18:13 Pulse 101 H 09/06/20 01:09 Resp 16 09/06/20 01:09 BP 100/71 09/06/20 01:09 Pulse Ox 99 09/06/20 01:09 ENMT Mouth: no dentition abnormality Thyromental Distance: > or= 3.5 Finger Breadths Mallampati Class: II Neck normal visual inspection Respiratory normal respiratory effort Auscultation: lungs clear to auscultation bilaterally Cardiovascular Rate/Rhythm: regular rate and regular rhythm Psychiatric Orientation: alert Testing Laboratory Results 09/05/20 19:17 09/05/20 19:17 Urine Color Dark Yellow 09/05/20 19:17 Urine Appearance Clear (Clear) 09/05/20 19:17 Urine pH 5.5 (4.5-7.5) 09/05/20 19:17 Ur Specific [place] 1.039 (1.000-1.030) H 09/05/20 19:17 Urine Protein 1+ (Negative) H 09/05/20 19:17 Urine Glucose (UA) Negative (Negative) 09/05/20 19:17 Urine Ketones 1+ (Negative) H 09/05/20 19:17 Urine Nitrite Positive (Negative) A 09/05/20 19:17 Ur Leukocyte Esterase Negative (Negative) 09/05/20 19:17 Urine WBC (Auto) 5-10 /hpf (0-5) H 09/05/20 19:17 Urine RBC (Auto) 5-10 /hpf (0-4) H 09/05/20 19:17 U Hyaline Cast (Auto) 10-30 /lpf (0-5) H 09/05/20 19:17 U Epithel Cells (Auto) >30 /lpf (0-5) H 09/05/20 19:17 Urine Bacteria (Auto) 1+ (Negative) H 09/05/20 19:17 09/05/20 19:17 POC Ur Test NEG
[2020-09-06] MEDS ORDERED: fentaNYL citrate 100 MCG/2 ML VIAL IV PRN (01:23)
[2020-09-06] MEDS ORDERED: HYDROmorphone INJ 2 MG/ML SYR/VIAL IV PRN (01:23)
[2020-09-06] MEDS ORDERED: ONDANSETRON INJ 2 MG/ML 2 ML VIAL IV PRN (01:23)
[2020-09-06] MEDS ORDERED: PROMETHAZINE HCL 6.25 MG in SODIUM CHLORIDE 0.9% 50 ML IV PRN (01:23)
[2020-09-06] MEDS ORDERED: ePHEDrine sulfate 50 MG/ML AMP IV PRN (01:23)
[2020-09-06] MEDS ORDERED: ATROPINE SULFATE 0.1 MG/ML 10ML SYR IV PRN (01:23)
[2020-09-06] MEDS ORDERED: BUPIVACAINE 0.5 % 5 MG/1 ML MPF 30ML VIAL ONE (01:29)
[2020-09-06] MEDS ORDERED: fentaNYL citrate 100 MCG/2 ML VIAL ONE ×3 (01:36→03:15)
[2020-09-06] MEDS ORDERED: MoRPHine SULFATE PF 1 MG/ML 10 ML AMP/VIAL ONE (01:58)
[2020-09-06] MEDS ORDERED: SUCCINYLCHOLINE 100MG/5ML SYR IV ONE (02:58)
[2020-09-06] MEDS ORDERED: ROCURONIUM BROMID 50MG/5ML SYR ONE (02:59)
[2020-09-06] MEDS ORDERED: ONDANSETRON INJ 2 MG/ML 2 ML VIAL ONE (02:59)
[2020-09-06] MEDS ORDERED: DEXAMETHASONE SOD INJ 4 MG/ML VIAL ONE (02:59)
--- NOTE | 2020-09-06 03:21 | Post Operative Brief Note ---
PG Immediate Post Op with CF Date of Surgery September 06, 2020 Pre & Post Diagnosis Operation Date: 09/06/20 02:00 Pre-Op Diagnosis: Hemorrhagic cyst of left ovary. Post-Op Diagnosis: Left adnexal mass. I identified the patient and participated in the time-out.: Yes Procedure Operation Date: 09/06/20 02:00 Actual Procedures p Laparoscopic cyst drainage and pelvic washing.(Left) - Alexa Montilla DO Surgeon Alexa Montilla, Respiratory Medicine Physician none Estimated Blood Loss 10 Findings See Below Large left adnexal mass, appears to be ovarian, adhered to bowel, purulent fluid. Specimens Specimen Description: Culture Set #1 Left cyst fluid for Aero/Lucy Culture & Gram Stain. Culture Set #2 Left cyst fluid for Non-Metal Cleaner Cytology Routine. Drains Mckinley Catheter and Coy-Thomson Drain Anesthesia Type General Disposition Accompanied Patient To Recovery: No Disposition: Recovery Room
--- NOTE | 2020-09-06 03:46 | Anesthesiology Progress Note ---
Date of Service September 06, 2020 Anesthesia Post Procedure Vital Signs Vital Signs: Temp Pulse Resp BP Pulse Ox 09/06/20 01:09 101 H 16 100/71 99 09/05/20 23:01 108 H 28 H 98 09/05/20 23:00 105 H 34 H 105/78 99 09/05/20 22:50 109 H 19 99 09/05/20 22:40 107 H 21 99 09/05/20 22:31 99 H 15 99 09/05/20 22:30 102 H 24 113/79 99 09/05/20 22:20 104 H 21 98 09/05/20 22:10 107 H 24 98 09/05/20 22:00 105 H 26 H 107/65 98 09/05/20 21:59 106 H 09/05/20 21:00 111 H 22 108/68 98 09/05/20 20:50 106 H 18 98 09/05/20 20:40 109 H 27 H 98 09/05/20 20:30 112 H 25 H 119/71 100 09/05/20 20:20 114 H 33 H 09/05/20 20:10 117 H 24 98 09/05/20 20:01 112 H 23 09/05/20 20:00 111 H 29 H 125/83 09/05/20 19:50 115 H 28 H 98 09/05/20 19:40 113 H 19 98 09/05/20 19:37 112 H 22 126/91 99 09/05/20 18:13 37.4 C 126 H 18 158/82 H 99 Pain Intensity Abdomen: Pain Intensity: 2 Transfer of Care Handoff Completed per policy Notes Mental Status: alert / awake / arousable Patient Amnestic to Procedure: Yes Nausea / Vomiting: adequately controlled Pain: adequately controlled Airway Patency, RR, SpO2: stable & adequate BP & HR: stable & adequate Hydration State: stable & adequate Anesthetic Complications: no major complications apparent
--- NOTE | 2020-09-06 03:48 | Operative Report ---
PG Post Operative Report Pre & Post Diagnosis Operation Date: 09/06/20 02:00 Pre-Op Diagnosis: Hemorrhagic cyst of left ovary. Post-Op Diagnosis: Left adnexal mass. I identified the patient and participated in the time-out.: Yes Procedure Operation Date: 09/06/20 02:00 Actual Procedures p Laparoscopic cyst drainage and pelvic washing.(Left) - Alexa Montilla DO Surgeon Alexa Montilla DO Extraction Supervisor none Estimated Blood Loss 10 Findings See Below Large left adnexal mass, appears to be ovarian, adhered to bowel, purulent fluid. Specimens Culture Set #1 Left cyst fluid for Aero/Lucy Culture & Gram Stain. Culture Set #2 Left cyst fluid for Non-Cover Assembler Cytology Routine. Drains Mckinley (removed at end of case) NG tube Coy-Thomson drain Anesthesia Type General Complications none Disposition Accompanied Patient To Recovery: No Disposition: Recovery Room Indications 45yo G0 with left ovarian cyst seen on ultrasound with suspicion for hemorrhagic cyst vs ovarian torsion. Out of concern for ovarian torsion, patient was taken to OR for laparoscopy. Description of Procedure The patient was seen and evaluated in the emergency department, where informed consent was obtained. All questions were answered. The patient was taken to the operating room, where general anesthesia was administered. She was prepared and draped in the usual sterile fashion in the dorsal lithotomy position with feet in yellowfin stirrups. Mckinley catheter was inserted. A speculum was placed in the vagina, the cervix was visualized and its anterior lip was grasped with a single-tooth tenaculum. A uterine manipulator was placed. Gloves were changed and attention was turned to the abdomen. A supraumbilical incision was made with a scalpel, and using direct visualization through the optical trocar, the supraumbilical trocar was placed. Intra-abdominal placement was visualized, and the abdomen was insufflated with CO2 gas to 15 mmHg. The abdomen was visualized. Liver edge appeared normal. Gallbladder not visualized. Appendix not visualized. In the pelvis, the uterus was small and pushed anteriorly by a large left adnexal mass. A right 5 mm laparoscopic trocar was placed under direct visualization. A blunt tipped probe was used to attempt to displace the mass, upon contact with the mass, the mass began to extrude a large amount of purulent greenish fluid. This was suctioned and sent to pathology for further evaluation. The pelvis was irrigated with copious amounts of sterile fluid and suctioned. Attempts were made to further evaluate the mass with gentle probing, however given the friability of the tissue and its appearance of adhesion to bowel, there was concern that further manipulation with laparoscopic instruments would cause injury. The pelvis was irrigated again, and excellent hemostasis was observed. A Coy-Thomson drain was inserted through the billable trocar, and its and was brought out through the 5 mm port. This was carefully laid along the opening of the left adnexal mass. All instruments were removed, the supraumbilical incision was reapproximated with a [id number] stitch of 0 Vicryl. The skin was then reapproximated using 4-0 Vicryl in a running stitch. Plain silk was used to secure the Coy-Thomson drain to the skin. The patient will be admitted for further evaluation and management. At this point, given the purulent fluid, appearance of large adnexal mass, patient's elevated white blood cell count, my suspicion is that this is a tubo-ovarian abscess. Will treat with triple antibiotics, amp, gent, Clinda, and continue to observe patient clinically. I attest to the content of the Intraoperative Record and any orders documented therein. Any exceptions are noted below.
[2020-09-06] MEDS ORDERED: GENTAMICIN CONSULT ACTIVE PRN (05:15)
[2020-09-06] MEDS: KETOROLAC 30 MG/ML VIAL IV PRN ×2 (05:42→15:11)
[2020-09-06] MEDS ORDERED: GENTAMICIN SULFATE 260 MG in DEXTROSE 5% 100 ML IV ONE (06:00)
[2020-09-06] MEDS: LACTATED RINGER'S 1,000 ML IV SCH ×3 (07:00→23:03)
--- NOTE | 2020-09-06 07:02 | Gynecologic Progress Note ---
Date of Service September 06, 2020 Assessment & Plan Admission and Anticipated Discharge Date Admission Date: September 06, 2020 Subjective POD#0, I went to patient's room to review case and care plans with her and spou se. Patient is awake, comfortable, reclining in bed. I reviewed images from surgery and discussed likely diagnosis of tuboovarian abscess with patient and spouse. Given the purulent fluid, the friability of tissue upon attempt at manipulation, the adhesions to surrounding bowel and pelvic sidewall, and patient's self-reported fevers and elevated WBC in ER, this seems like a likely diagnosis. Reviewed that this possibly has an infectious cause, possibly malignant cause. Sent cultures and cytology of the purulent fluid. To treat, I have ordered triple antibiotics - amp/gent/clinda - for wide spectrum coverage. Answered questions to the best of my ability. Most TOA cases improve with IV antibiotics. If no improvement or worsening condition, would likely require transfer to a tertiary center, as she would probably need another surgery at that point. Would need to be able to have the expertise of JAVA WEB SERVICES DEVELOPER oncology or coordination of minimally invasive JAVA WEB SERVICES DEVELOPER + general surgery. On exam today, abdomen is soft and appropriately tender. There is still significant serosanguinous output from JAYMIE drain - this is expected, as used about 3L of irrigation fluid in the pelvis during the case. Incisions CDI. Will plan for small bowel follow-through study today with radiology. I have spoken with radiology, who understands that we are looking to see if there appears to be involvement between bowel and the adnexal mass, particularly in the area where drainage of the adnexal mass occurred. After this study, as long as all goes well, patient is ok to slowly advance diet and have NG tube removed. Results & Data ([facility]) Vital Signs (Past 12 Hours) Vital Signs Temp Pulse Pulse Pulse Resp BP BP 09/06/20 06:17 36.3 C L 122 H 20 115/74 09/06/20 05:41 37.8 C H 127 H 22 119/75 09/06/20 05:18 37.9 C H 130 H 24 128/79 09/06/20 05:00 36.7 C 131 H 24 128/72 09/06/20 04:37 139 H 24 139/80 09/06/20 04:22 24 144/89 H 09/06/20 04:02 36.8 C 140 H 24 159/98 H 09/06/20 03:52 146 H 24 166/90 H 09/06/20 03:42 142 H 25 H 161/115 H 09/06/20 03:36 36.8 C 149 H 30 H 152/109 H 09/06/20 01:09 101 H 16 100/71 09/05/20 23:01 108 H 28 H 09/05/20 23:00 105 H 34 H 105/78 09/05/20 22:50 109 H 19 09/05/20 22:40 107 H 21 09/05/20 22:31 99 H 15 09/05/20 22:30 102 H 24 113/79 09/05/20 22:20 104 H 21 09/05/20 22:10 107 H 24 09/05/20 22:00 105 H 26 H 107/65 09/05/20 21:59 106 H 09/05/20 21:00 111 H 22 108/68 09/05/20 20:50 106 H 18 09/05/20 20:40 109 H 27 H 09/05/20 20:30 112 H 25 H 119/71 09/05/20 20:20 114 H 33 H 09/05/20 20:10 117 H 24 09/05/20 20:01 112 H 23 09/05/20 20:00 111 H 29 H 125/83 09/05/20 19:50 115 H 28 H 09/05/20 19:40 113 H 19 09/05/20 19:37 112 H 22 126/91 Pulse Ox 09/06/20 06:17 97 09/06/20 05:41 96 09/06/20 05:18 97 09/06/20 05:00 95 09/06/20 04:37 91 09/06/20 04:22 89 L 09/06/20 04:02 91 09/06/20 03:52 91 09/06/20 03:42 89 L 09/06/20 03:36 92 09/06/20 01:09 99 09/05/20 23:01 98 09/05/20 23:00 99 09/05/20 22:50 99 09/05/20 22:40 99 09/05/20 22:31 99 09/05/20 22:30 99 09/05/20 22:20 98 09/05/20 22:10 98 09/05/20 22:00 98 09/05/20 21:59 09/05/20 21:00 98 09/05/20 20:50 98 09/05/20 20:40 98 09/05/20 20:30 100 09/05/20 20:20 09/05/20 20:10 98 09/05/20 20:01 09/05/20 20:00 09/05/20 19:50 98 09/05/20 19:40 98 09/05/20 19:37 99
[2020-09-06] MEDS: MoRPHine SULFATE 4 MG/ML 1 ML CARP\\VIAL IV PRN ×4 (07:37→20:23)
[2020-09-06] MEDS: CLINDAMYCIN 900 MG in DEXTROSE 5% 50 ML IV SCH ×3 (07:38→23:03)
--- NOTE | 2020-09-06 07:41 | Ultrasound Report ---
PELVIC ULTRASOUND CLINICAL HISTORY: LLQ pain, 8cm ovarian cyst, ?torsion COMPARISON STUDY: None. TECHNIQUE: Transabdominal and transvaginal sonography of the pelvis was performed. FINDINGS: Uterus measures 8.3 x 3.9 x 2.9 cm. Endometrium measures 7 mm in thickness. The right ovary is sonographically normal, measuring 3.2 x 1.9 x 1.7 cm. There is color flow within each ovary. The left ovary measures 10.4 x 9.7 x 9.6 cm and contains a large 8.4 x 7.2 x 8.1 cm complex cystic lesion with internal echoes. This contains no color flow. There is no adnexal mass. A small amount of free fluid is present IMPRESSION: 1. Complex 8.4 cm left ovarian cystic lesion. This may reflect a hemorrhagic cyst but is nonspecific and sonographic follow up is recommended to ensure resolution. 2. No sonographic evidence for ovarian torsion. 3. Small amount of fluid within the pelvis. ACT 112: Negative or not required by law. Electronically signed by: Wayne Malhotra M.D. 09/06/2020 7:40 AM
[2020-09-06] MEDS: AMPICILLIN 2,000 MG in SODIUM CHLOR 0.9% AD-VAN 100 ML IV SCH ×3 (09:24→19:39)
[2020-09-06 10:08] LABS: Hemoglobin 10.8 g/dL (12.0-16.0); Mean Corpuscular Hemoglobin 31.7 pg (25-34); Mean Corpuscular Hgb Conc 33.8 g/dL (32-36); Mean Corpuscular Volume 93.8 fL (80-100); Mean Platelet Volume 10.3 fL (7.4-10.4); Platelet Count 381 K/uL (130-400); RDW Coefficient of Variation 12.8 % (11.5-14.5); RDW Standard Deviation 44.2 fL (36.4-46.3); Red Blood Count 3.41 M/uL (4.2-5.4); White Blood Count 19.44 K/uL (4.8-10.8)
[2020-09-06 10:26] LABS: Albumin Level 1.9 gm/dl (3.4-5.0); BUN Creatinine Ratio 9.8 (10-20); Calcium 7.5 mg/dl (8.5-10.1); Creatinine Clr Calc Pharmacy 69.5 ml/min; Est GFR (African American) 100.2; Est GFR (Non-African American) 86.5; Potassium 3.3 mmol/L (3.5-5.1)
[2020-09-06 10:32] LABS: Basophils # (auto) 0.01 K/uL (0-0.2); Basophils % (auto) 0.1 %; Immature Granulocytes # (auto) 0.13 K/uL (0.00-0.02); Immature Granulocytes % (auto) 0.7 %; Lymphocytes # (auto) 0.62 K/uL (1.2-3.4); Lymphocytes % (auto) 3.2 %; Monocytes # (auto) 0.52 K/uL (0.11-0.59); Monocytes % (auto) 2.7 %; Neutrophils # (auto) 18.16 K/uL (1.4-6.5); Neutrophils % (auto) 93.3 %; RBC Morphology Unremarkable
[2020-09-06 10:33] LABS: Albumin Globulin Ratio 0.5 (0.9-2); Bilirubin,Total 0.5 mg/dl (0.2-1); Total Protein 5.9 gm/dl (6.4-8.2)
[2020-09-06] MEDS ORDERED: POTASSIUM CHLORIDE 20 MEQ/15 ML UDC NG STA (11:12)
--- NOTE | 2020-09-06 11:40 | Fluoroscopy Report ---
SMALL BOWEL FOLLOW-THROUGH UTILIZING WATER-SOLUBLE CONTRAST CLINICAL HISTORY: r/o bowel involvement in adnexal mass COMPARISON STUDY: Pelvic ultrasound September 05, 2020. FLUOROSCOPY TIME: 0.3 minutes. FLUOROSCOPIC IMAGES: 5. PROCEDURE AND FINDINGS: A reception interviewer KUB was obtained which demonstrated tip of nasogastric tube within th e stomach. Drain within the pelvis is noted. Bowel gas pattern is normal. Transit time to the cecum w as rapid at 20 minutes. No contrast extravasation was identified to suggest a leak. No transition in caliber of small bowel is noted to suggest a bowel obstruction. Mucosal detail is diminished utilizin g this technique. Delayed imaging of the of the drain revealed no contrast within the JAYMIE bulb or the drain catheter. The appendix was opacified. IMPRESSION: 1. No contrast extravasation to suggest small bowel leak. 2. No evidence for a small bowel obstruction. ACT 112: Negative or not required by law. Electronically signed by: Wayne Malhotra M.D. 09/06/2020 11:38 AM
[2020-09-06] MEDS ORDERED: ACETAMINOPHEN 325 MG TAB PO PRN (21:36)
[2020-09-06] MEDS ORDERED: ACETAMINOPHEN 1,000 MG/100 ML VIAL IV PRN (23:14)
--- NOTE | 2020-09-06 23:14 | Consultation ---
Date of Consultation September 06, 2020 Assessment & Plan (1) Fever: 45 yo previously healthy GO s/p laparoscopic cyst drainage and pelvic washings with findings concerning for tuboovarian abscess (TOA) Post operative fever in the setting of TOA vs. malignant cyst s/p drainage, likely due to the systemic response to drainage tachycardic slightly hypotensive small bowel study with no contrast extravasation and no SBO seen currently getting broad coverage with amp/gent/clinda has Tylenol, Toradol, and Morphine available for pain has fluid running at 125/h further evaluation of alternative causes for fever including UTI, PNA, and thrombosis - ordered UA, CXR and duplex ultrasound - continue to follow vitals and clinical picture DVT prophylaxis: SCD's in the post operative setting Diet: advanced as tolerated Supervising Physician Co-Signing Physician Notes Patient seen and examined, chart reviewed, case discussed with Dr. Trevino and I agree with his assessment and plan as above. Briefly, patient is a 45yo female s/p laparoscopic cyst drainage with pelvic washout performed yesterday. Findings concerning for infection vs malignancy. Patient is on abx with Gentamicin/Ampicillin and Clindamycin. Febrile, tachycardic with borderline hypotension occurring last night. On exam she is resting comfortably, NAD Skin - dressings in place c/d/i, no bleeding/drainage/erythema. JAYMIE drain in place with scant amount of serosanguinous drainage HEENT - NC/AT, MMM, Neck supple Heart - +S1/S2, regular, no m/r/g Lungs - CTA Abd - +BS, soft, tender Ext - No edema Labs and images reviewed Assessment/Plan: -Follow cultures -Continue broad spectrum antibiotics -Monitor closely for worsening sepsis -Remainder of plan as above History of Present Illness Reason for Consultation: fever Attending Physician: Alexa Montilla, DO History of Present Illness Nicole De Leon is here for ovarian mass with severe LLQ pain. She was admitted with severe pain and concern for ovarian torsion. She is now POD# 0 from laparoscopic cyst drainage and pelvic washing. When asked how she was the patient said she was, " feeling like crap". She was having constant pressure with cramping in her left lower abdomen 8/10 in severity. She was anxious and tearful. She was not feeling any fevers or chills or nausea. She was sweating earlier. She denies any sensation of presyncope or syncope. She denies chest pain, palpitations. She does have a cough that is slight but does not have any shortness of breath. She admits some pain with urination but relates that to the cruz being placed and denies dysuria or urgency. She was previously healthy and only takes Zofran at home for nausea. Social Hx: tobacco: 1/2 pack / day since she was 10 ETOH: none substance use: none Allergies Allergy/AdvReac Type Severity Reaction Status Date / Time pramipexole [From Mirapex] Allergy Unknown Verified 09/05/20 19:33 Home Medications Medication Instructions Recorded Confirmed Type ondansetron HCl 4 mg tablet 4 mg PO Q8H PRN #30 tab 06/15/20 09/05/20 Rx acetaminophen [Tylenol Extra 1,000 mg PO Q6H PRN 09/05/20 09/05/20 History Strength] Patient History Medical History Abnormal vaginal bleeding Dilated pancreatic duct Hemorrhagic cyst of left ovary Surgical History History of oral surgery Family History Father Myocardial infarction Afib Mother Diabetes Osteoporosis Hypertension Dyslipidemia Stroke Grandfather Myocardial infarction Denies family history of Ovarian cancer Prostate cancer Breast cancer Colorectal cancer Social History Smoking Status: Current every day smoker Tobacco Type: Cigarettes and E-cigarettes / Vaping Cigarettes Per Day: 10; Second Hand Exposure: No; Hx Alcohol Use: No Hx Substance Use: No Preferred Language: Libyan Communication Ability: Effective Visual Impairment: No Limitations Hearing Ability: Normal Apparel Fashion Designer Required: No Beliefs That Will Affect Care: None marital status: Current Living Situation: Spouse and Parent Current Living Situation Comment: mom, and daughter current occupational status: employed 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 Feels Safe at Home: Yes Dental Care, Regularly: No Seatbelt Use: always Sunscreen Use: No Assistive Devices: None Review of Systems Review of Systems: All systems reviewed & are unremarkable except as noted in HPI & below Physical Exam Constitutional: well nourished and + in distress (tearful) Eyes: PERRL, conjunctivae normal, anicteric sclerae ENMT: external ear and nose normal, oropharynx normal Neck: normal visual inspection Respiratory: normal respiratory effort, lungs clear to auscultation Cardiovascular: RRR, no murmur, no edema Gastrointestinal (Abdomen): - abdomen mildly distended with c/d/i surgical banages on the right abdomen - bowel sounds intact - tender to palpation with guarding - soft - JAYMIE drain with opaque pink fluid draining Skin: no rashes, warm and dry Neurologic: no focal motor deficits Psychiatric: Orientation: alert and oriented x 3 Affect: + anxious affect and + tearful affect Results & Data ([facility]) Vital Signs (Past 12 Hours) Vital Signs Temp Pulse Pulse Resp BP Pulse Ox 09/06/20 22:12 38.0 C H 124 H 15 111/71 93 09/06/20 20:17 38.3 C H 118 H 102/69 09/06/20 19:18 37.2 C 108 H 18 99/67 L 97 09/06/20 15:07 36.7 C 118 H 16 104/68 95 09/06/20 12:05 37.4 C 118 H 16 95/64 L 94 Results Complete Blood Count Results: RBC 3.23 M/uL (4.2-5.4) L 09/06/20 WBC 19.83 K/uL (4.8-10.8) H 09/06/20 Hgb 10.2 g/dL (12.0-16.0) L 09/06/20 Hct 29.5 % (37-47) L 09/06/20 Plt Count 353 K/uL (130-400) 09/06/20 Results BMP Results: Sodium 142 mmol/L (136-145) 09/06/20 Potassium 3.3 mmol/L (3.5-5.1) L 09/06/20 Chloride 111 mmol/L (98-107) H 09/06/20 BUN 8 mg/dl (7-18) 09/06/20 Creatinine 0.81 mg/dl (0.6-1.2) 09/06/20 Glucose 105 mg/dl (70-99) H 09/06/20 Resident Activity Tracking Resident Involvement: Resident Care Provided Care Provided: Adult Hospital Medicine (1) Fever Fever type: unspecified Qualified Code(s): R50.9 - Fever, unspecified
[2020-09-06 23:57] LABS: Basophils # (auto) 0.01 K/uL (0-0.2); Basophils % (auto) 0.1 %; Hematocrit (blood only) 29.5 % (37-47); Hemoglobin 10.2 g/dL (12.0-16.0); Immature Granulocytes % (auto) 0.5 %; Lymphocytes # (auto) 1.14 K/uL (1.2-3.4); Lymphocytes % (auto) 5.7 %; Mean Corpuscular Hemoglobin 31.6 pg (25-34); Mean Corpuscular Hgb Conc 34.6 g/dL (32-36); Mean Corpuscular Volume 91.3 fL (80-100); Mean Platelet Volume 10.6 fL (7.4-10.4); Monocytes # (auto) 0.54 K/uL (0.11-0.59); Monocytes % (auto) 2.7 %; Neutrophils # (auto) 18.04 K/uL (1.4-6.5); Platelet Count 353 K/uL (130-400); RDW Coefficient of Variation 12.9 % (11.5-14.5); RDW Standard Deviation 43.5 fL (36.4-46.3); Red Blood Count 3.23 M/uL (4.2-5.4); White Blood Count 19.83 K/uL (4.8-10.8)
[2020-09-07] MEDS: AMPICILLIN 2,000 MG in SODIUM CHLOR 0.9% AD-VAN 100 ML IV SCH ×4 (02:22→19:32)
[2020-09-07] MEDS: KETOROLAC 30 MG/ML VIAL IV PRN ×3 (04:45→19:26)
[2020-09-07] MEDS: GENTAMICIN SULFATE 260 MG in DEXTROSE 5% 100 ML IV SCH (05:35)
[2020-09-07] MEDS ORDERED: GENTAMICIN SULFATE 300 MG in DEXTROSE 5% 100 ML IV ONE (06:00)
--- NOTE | 2020-09-07 06:54 | Billing Data ---
Date of Service September 06, 2020 Coding Level of Care Code 43480 Inpt Consult Level 3
--- NOTE | 2020-09-07 07:11 | Ultrasound Report ---
BILATERAL LOWER EXTREMITY VENOUS DOPPLER HISTORY: fever, tachycardia COMPARISON STUDY: None. FINDINGS: There is normal compressibility, flow, and augmentation within the bilateral lower extremit y deep venous systems. IMPRESSION: No DVT within the right or left lower extremity. ACT 112: Negative or not required by law. Electronically signed by: Bret Melo M.D. 09/07/2020 7:09 AM
[2020-09-07] MEDS: CLINDAMYCIN 900 MG in DEXTROSE 5% 50 ML IV SCH ×3 (07:15→22:45)
--- NOTE | 2020-09-07 07:49 | XRay Report ---
XR chest 1V portable CLINICAL HISTORY: fever COMPARISON STUDY: No previous studies for comparison. FINDINGS: Lung volumes are at the lower limits of normal. There is no pneumothorax. There are trace b ilateral pleural effusions. Bibasilar opacities are noted, greater on the left. Cardiac size is gabrielle l. Mediastinal contours are unremarkable. There is pulmonary vascular congestion without pulmonary ed alistair. IMPRESSION: 1. Bibasilar opacities which may reflect consolidation or atelectasis. Trace bilateral pleural effusi ons. 2. Pulmonary vascular congestion without evidence for pulmonary edema. ACT 112: Negative or not required by law. Electronically signed by: Wayne Malhotra M.D. 09/07/2020 7:48 AM
[2020-09-07 08:44] LABS: Basophils # (auto) 0.01 K/uL (0-0.2); Basophils % (auto) 0.1 %; Eosinophils # (auto) 0.01 K/uL (0-0.5); Eosinophils % (auto) 0.1 %; Hematocrit (blood only) 27.5 % (37-47); Hemoglobin 9.4 g/dL (12.0-16.0); Immature Granulocytes # (auto) 0.06 K/uL (0.00-0.02); Immature Granulocytes % (auto) 0.4 %; Lymphocytes # (auto) 1.31 K/uL (1.2-3.4); Lymphocytes % (auto) 8.4 %; Mean Corpuscular Hemoglobin 31.6 pg (25-34); Mean Corpuscular Hgb Conc 34.2 g/dL (32-36); Mean Corpuscular Volume 92.6 fL (80-100); Mean Platelet Volume 10.8 fL (7.4-10.4); Monocytes # (auto) 0.38 K/uL (0.11-0.59); Monocytes % (auto) 2.4 %; Neutrophils # (auto) 13.84 K/uL (1.4-6.5); Neutrophils % (auto) 88.6 %; Platelet Count 359 K/uL (130-400); RDW Coefficient of Variation 13.1 % (11.5-14.5); RDW Standard Deviation 44.6 fL (36.4-46.3); Red Blood Count 2.97 M/uL (4.2-5.4); White Blood Count 15.61 K/uL (4.8-10.8)
[2020-09-07] MEDS ORDERED: LACTATED RINGER'S 1,000 ML IV ONE (09:21)
[2020-09-07 09:22] LABS: Albumin Level 1.5 gm/dl (3.4-5.0); BUN Creatinine Ratio 22.3 (10-20); Calcium 7.8 mg/dl (8.5-10.1); Creatinine Clr Calc Pharmacy 85.3 ml/min; Est GFR (African American) 121.9; Est GFR (Non-African American) 105.2; Potassium 3.1 mmol/L (3.5-5.1)
[2020-09-07 09:24] LABS: Albumin Globulin Ratio 0.4 (0.9-2); Bilirubin,Total 0.3 mg/dl (0.2-1); Globulin 3.8 gm/dl (2.5-4.0); Total Protein 5.3 gm/dl (6.4-8.2)
[2020-09-07] MEDS: MoRPHine SULFATE 4 MG/ML 1 ML CARP\\VIAL IV PRN ×2 (09:44→21:24)
[2020-09-07] MEDS: LACTATED RINGER'S 1,000 ML IV SCH ×2 (09:47→17:43)
--- NOTE | 2020-09-07 10:14 | Hospitalist Progress Note ---
Date of Service September 07, 2020 Assessment & Plan (1) Fever: 45 yo previously healthy GO s/p laparoscopic cyst drainage and pelvic washings with findings concerning for tuboovarian abscess (TOA). #Post operative fever in the setting of TOA vs. malignant cyst s/p drainage, likely due to the systemic response to drainage, on presentation meeting sepsis criteria Admitted postoperatively for severe left lower quadrant pain, fevers, chills, malaise. Small bowel study postop with no contrast extravasation and no SBO seen. She has improved overnight, in the ED she received Zosyn and then was put on triple therapy. UA, CXR and duplex ultrasound all negative. -Continue amp/gent/clinda narrow pending speciation and sensitivities -Culture showing gram-negative bacilli -WBC is trending down -Pain control with Tylenol, Toradol, and Morphine -Bolused 1 L of LR this morning continue LR at 125/h -continue to follow vitals and clinical picture -For repeat SBO evaluation today -advance to clears #Postoperative hemoglobin drop Patient with acute hemoglobin drop overnight, suspect likely secondary to dilutional. Will trend. -Trend H&H/CBC -Hgb:12.6 ->10.8 -> 10.2 -> 9.4 ->10.1 FENa: N.p.o. pending small bowel evaluation, and LABEL STAMPER approval to advance diet Code Status: Full code DVT PPX: SCD's in the post operative setting, to consider Lovenox PT/OT: Not indicated Dispo: SHIP SURVEYOR Herrera Mitchell MD PGY 2, FCM This chart was completed utilizing [employer] voice recognition software. Grammatical errors, random word insertions, pronoun errors, and in complete sentences are an occasional consequence of the system. Any questions or concerns about the content, text, or information contained within the body of this dictation should be addressed directly to the physician for clarification. DVT prophylaxis: Diet: advanced as tolerated (2) Leukocytosis: (3) Sepsis: Admission and Anticipated Discharge Date Admission Date: September 06, 2020 Supervising Physician Co-Signing Physician Notes Attending attestation Pt seen and examined in concert with Dr. Mitchell. In agreement with the documented findings as noted in the resident documentation with any exceptions or additions as noted here. Ongoing diffuse abdominal discomfort which is controlled on present medication without nausea/vomiting. On evaluation, S1/S2 nl RRR no MCG. CTAB. Abd nondistended, surgical sites C/D/I Postoperative fever s/p laparoscopic cyst drainage - continue clinda/gent/amp. 1L bolus with improvement in tachycardia, continue maintenance and re-bolus if worsening tachycardia. Continue pain management. Anemia - postoperative, may be fluid related - trend CBC, transfuse at 7. Else see resident documentation as noted. Subjective Patient lying in bed this morning in no acute distress. Patient reports being hungry, otherwise is voiding and stooling, in no acute distress. Patient reports her pain is well controlled, had an episode noted to have fevers overnight, at present she is just eager to feel healthy again. All questions answered acute concerns relates planned imaging studies today. Physical Exam Physical Exam: General: Lying in bed in no acute distress HEENT: Normocephalic atraumatic Neck: Normal to visual inspection, trachea midline Cardiac: Tachycardic otherwise regular rhythm, I did not appreciate any murmurs rubs or gallops, normal S1, normal S2, negative pedal edema, negative calf tenderness Respiratory: Clear to auscultation bilaterally with symmetrical chest expansion and no increased work of breathing I did not appreciate significant wheezes, rales, rhonchi GI: Soft, tender around the surgical sites, surgical sites are clean dry and intact, bowel sounds present, no distention MSK: Moves all extremities Results & Data Results & Data ([facility]) Vital Signs (Past 12 Hours) Vital Signs Temp Pulse Resp BP Pulse Ox 09/07/20 07:21 37.1 C 103 H 14 108/63 94 09/07/20 02:21 37.1 C 103 H 20 93/64 L 93 Laboratory Results 09/07/20 09/07/20 09/07/20 Range/Units 08:28 07:57 07:57 WBC 15.61 H (4.8-10.8) K/uL RBC 2.97 L (4.2-5.4) M/uL Hgb 9.4 L (12.0-16.0) g/dL Hct 27.5 L (37-47) % MCV 92.6 (80-100) fL MCH 31.6 (25-34) pg MCHC 34.2 (32-36) g/dL RDW Std Deviation 44.6 (36.4-46.3) fL RDW Coeff of Herberth 13.1 (11.5-14.5) % Plt Count 359 (130-400) K/uL MPV 10.8 H (7.4-10.4) fL Immature Gran % (Auto) 0.4 % Neut % (Auto) 88.6 % Lymph % (Auto) 8.4 % Lawrence % (Auto) 2.4 % Eos % (Auto) 0.1 % Baso % (Auto) 0.1 % Neut # (Auto) 13.84 H (1.4-6.5) K/uL Lymph # (Auto) 1.31 (1.2-3.4) K/uL Lawrence # (Auto) 0.38 (0.11-0.59) K/uL Eos # (Auto) 0.01 (0-0.5) K/uL Baso # (Auto) 0.01 (0-0.2) K/uL Immature Gran # (Auto) 0.06 H (0.00-0.02) K/uL Sodium 140 (136-145) mmol/L Potassium 3.1 L (3.5-5.1) mmol/L Chloride 107 (98-107) mmol/L Carbon Dioxide 25 (21-32) mmol/L Anion Gap 8.0 (3-11) BUN 15 D (7-18) mg/dl Creatinine 0.66 (0.6-1.2) mg/dl Est Cr Clr Drug Dosing 85.3 ml/min Est GFR ( Amer) 121.9 Est GFR (Non-Af Amer) 105.2 BUN/Creatinine Ratio 22.3 H (10-20) Glucose 87 (70-99) mg/dl Lactate 1.3 (0.4-2.0) mmol/L Calcium 7.8 L (8.5-10.1) mg/dl Total Bilirubin 0.3 (0.2-1) mg/dl AST 12 L (15-37) U/L ALT 6 L (12-78) U/L Alkaline Phosphatase 71 (45-117) U/L Total Protein 5.3 L (6.4-8.2) gm/dl Albumin 1.5 L (3.4-5.0) gm/dl Globulin 3.8 (2.5-4.0) gm/dl Albumin/Globulin Ratio 0.4 L (0.9-2) Random Gentamicin mcg/ml 09/06/20 09/06/20 Range/Units 22:47 17:03 WBC 19.83 H (4.8-10.8) K/uL RBC 3.23 L (4.2-5.4) M/uL Hgb 10.2 L (12.0-16.0) g/dL Hct 29.5 L (37-47) % MCV 91.3 (80-100) fL MCH 31.6 (25-34) pg MCHC 34.6 (32-36) g/dL RDW Std Deviation 43.5 (36.4-46.3) fL RDW Coeff of Herberth 12.9 (11.5-14.5) % Plt Count 353 (130-400) K/uL MPV 10.6 H (7.4-10.4) fL Immature Gran % (Auto) 0.5 % Neut % (Auto) 91.0 % Lymph % (Auto) 5.7 % Lawrence % (Auto) 2.7 % Eos % (Auto) 0.0 % Baso % (Auto) 0.1 % Neut # (Auto) 18.04 H (1.4-6.5) K/uL Lymph # (Auto) 1.14 L (1.2-3.4) K/uL Lawrence # (Auto) 0.54 (0.11-0.59) K/uL Eos # (Auto) 0.00 (0-0.5) K/uL Baso # (Auto) 0.01 (0-0.2) K/uL Immature Gran # (Auto) 0.10 H (0.00-0.02) K/uL Sodium (136-145) mmol/L Potassium (3.5-5.1) mmol/L Chloride (98-107) mmol/L Carbon Dioxide (21-32) mmol/L Anion Gap (3-11) BUN (7-18) mg/dl Creatinine (0.6-1.2) mg/dl Est Cr Clr Drug Dosing ml/min Est GFR ( Amer) Est GFR (Non-Af Amer) BUN/Creatinine Ratio (10-20) Glucose (70-99) mg/dl Lactate (0.4-2.0) mmol/L Calcium (8.5-10.1) mg/dl Total Bilirubin (0.2-1) mg/dl AST (15-37) U/L ALT (12-78) U/L Alkaline Phosphatase (45-117) U/L Total Protein (6.4-8.2) gm/dl Albumin (3.4-5.0) gm/dl Globulin (2.5-4.0) gm/dl Albumin/Globulin Ratio (0.9-2) Random Gentamicin 1.20 mcg/ml Medications Administered Current Inpatient Medications Ampicillin Sodium 2,000 mg/ (Sodium Chloride) 100 mls @ 200 mls/hr IV Q6H [facility] Stop: 09/16/20 07:59 Last Infusion: 09/07/20 09:12 Dose: Infused Documented by: Clindamycin Phosphate 900 mg/ (Dextrose) 56 mls @ 112 mls/hr IV Q8H [facility] Stop: 09/16/20 06:59 Last Infusion: 09/07/20 08:22 Dose: Infused Documented by: Lactated Ringer's (Lr) 1,000 mls @ 125 mls/hr IV .Q8H [facility] Stop: 10/06/20 06:29 Last Admin: 09/07/20 09:47 Dose: 125 mls/hr Documented by: Gentamicin Sulfate 260 mg/ (Dextrose) 106.5 mls @ 100 mls/hr IV DAILY@0600 [facility]; Protocol Stop: 09/17/20 05:59 Last Infusion: 09/07/20 07:13 Dose: Infused Documented by: Acetaminophen (Ofirmev) 1,000 mg in 100 mls @ 400 mls/hr IV Q8H PRN PRN Reason: Pain Stop: 09/09/20 23:13 Ketorolac Tromethamine (Ketorolac 30 Mg/Ml Vial) 30 mg IV Q6H PRN PRN Reason: Pain Stop: 09/11/20 05:14 Last Admin: 09/07/20 04:45 Dose: 30 mg Documented by: Miscellaneous Information (Gentamicin Consult Active) 1 ea N/A UD PRN PRN Reason: Consult Stop: 10/06/20 05:14 Morphine Sulfate (Morphine Sulfate 4 Mg/Ml 1 Ml Carp\Vial) 4 mg IV Q2H PRN PRN Reason: Pain Stop: 09/20/20 05:14 Last Admin: 09/07/20 09:44 Dose: 4 mg Documented by: Resident Activity Tracking Resident Involvement: Resident Care Provided Care Provided: Adult Hospital Medicine (1) Fever Fever type: unspecified Qualified Code(s): R50.9 - Fever, unspecified (2) Leukocytosis Leukocytosis type: unspecified Qualified Code(s): D72.829 - Elevated white blood cell count, unspecified
[2020-09-07] MEDS ORDERED: OPTIRAY 320 100ml IV ONE (11:23)
[2020-09-07 11:55] LABS: Appearance Urine Clear (Clear); Bacteria Urine Automated Negative (Negative); Bilirubin Urine Negative (Negative); Blood Urine 1+ (Negative); Color Urine Yellow; Epithelial Cell Urine Auto >30 /lpf (0-5); Glucose Urine UA Negative (Negative); Ketones Urine Trace (Negative); Leukocyte Esterase Urine Negative (Negative); Nitrite Urine Negative (Negative); Protein Urine 1+ (Negative); RBC Urine Automated 0-4 /hpf (0-4); Specific Gravity Urine 1.014 (1.000-1.030); Urobilinogen Urine Negative (Negative)
--- NOTE | 2020-09-07 11:58 | CT Scan Report ---
CT abd pelvis oral and IV con CLINICAL HISTORY: Pelvic pain. Possible diverticular abscess or tubo-ovarian abscess. ABNORMAL PELVIC ULTRASOUND. COMPARISON STUDY: Pelvic ultrasound dated 09/05/2020 TECHNIQUE: The patient was scanned following administration of dilute oral contrast, and in a dynamic helical fashion during intravenous administration of 90 cc Optiray 320 A dose lowering technique wa s utilized adhering to the principles of ALARA. CT DOSE: 462.88 mGy.cm FINDINGS: Lower chest: There are small bilateral pleural effusions with associated dependent basilar airspace o pacities likely atelectatic Liver: There is focal fat adjacent the falciform ligament. There is mild periportal edema. The hepati c and portal veins appear patent. Gallbladder: There is minimal pericholecystic fluid. No calculi are visualized. Spleen: Normal in size and attenuation. Pancreas: Unremarkable. Adrenal glands: Unremarkable. Kidneys: There is symmetric renal cortical enhancement. The kidneys are normal in size without hydron ephrosis. Bowel: There are no transition zones to indicate bowel obstruction. The appendix appears normal. Ther e is no evidence of acute diverticulitis. Peritoneum: There is small droplets of free intraperitoneal air, likely postsurgical. There is 30 per itoneal fat finding which may indicate peritonitis.There is a 6.4 cm pelvic fluid collection containi ng air bubbles suspicious for an abscess. This abuts the left ovary. Within the posterior cul-de-sac, there is a second U shaped fluid collection measuring 39 mm in maximal diameter. A second abscess is suspected. There is a right lower quadrant surgical drain present. Vasculature: The abdominal aorta is normal in course and caliber. Adenopathy: None. Pelvic viscera: There are pelvic fluid collections suspicious for abscesses as described above. Skeletal structures: No destructive osseous lesions are seen. IMPRESSION: 1. No evidence of bowel obstruction. 2. 6.4 cm pelvic fluid collection containing air bubbles suspicious for an abscess. 3. U shaped fluid collection within the cul-de-sac measuring 39 mm suspicious for a second abscess. 4. Right lower quadrant surgical drain 5. Small droplets of free intraperitoneal gas, likely postsurgical 6. The peritoneal fat appears slightly "dirty". This may could indicate peritonitis. ACT 112: Negative or not required by law. Electronically signed by: David Bolton M.D. 09/07/2020 11:57 AM
--- NOTE | 2020-09-07 12:20 | Gynecologic Progress Note ---
Date of Service September 07, 2020 Assessment & Plan (1) Tubo-ovarian abscess: POD1 s/p Laparoscopic cyst drainage and pelvic washing for left adnexal mass -Pain managed w/ tylenol, toradol, morphine -Suspected TOA - currently on amp/gent/clinda now x 24 hrs, last febrile 07/09 2200 which was within the first 24 hrs of initiation -WBC downtrending 19 > 15 this AM -fluid cx growing gram neg bacilli, sensitivities pending. Continue current antibx until 24hrs afebrile and sensitivities return to narrow down -cytology most c/w abscess, negative for malignancy -small bowel follow through w/o evidence of obstruction or leak -CT ordered today to r/o diverticular abscess encasing ovary vs TOA as prior CTs had noted diverticulosis, currently pending -JAYMIE drain in RLQ, output improving since initial placement but still >30cc/hr. Pelvis was irrigated ~3L during procedure, current output is bloody/watery -hospitalist consult last evening w/ neg duplex, UA and CXR -Diet - ice chips -DVT ppx - SCDs, ambulation Admission and Anticipated Discharge Date Admission Date: September 06, 2020 Subjective Checked on pt after return of cytology demonstrating cells c/w abscess, negative for malignancy. Pt made aware. Continuing to have loose stools after contrast from imaging previously. 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 Remains afebrile from last night, still feels bloated since the surgery and from contrast. Tolerating ice chips w/o n/v Physical Exam Constitutional: WD/WN, vitals as above Respiratory: normal respiratory effort; no respiratory distress and no labored breathing Gastrointestinal (Abdomen): Inspection/Auscultation: abdomen normal to inspection, + abdomen distended (mildly distended) and + abdominal surgical drain present (RLQ) Percussion/Palpation: + abdomen tender (appropriately tender) and abdomen soft; no guarding and abdomen not rigid Psychiatric: A+Ox3, euthymic affect Results & Data ([facility]) Vital Signs (Past 12 Hours) Vital Signs Temp Pulse Resp BP Pulse Ox 09/07/20 07:21 98.8 F 103 H 14 108/63 94 09/07/20 02:21 98.8 F 103 H 20 93/64 L 93 PG Care Time/CCT Total # of Minutes Spent Total Time Spent with Patient: Total time spent is greater than 50% in coordination of care (as documented) at patient's floor/unit and/or counseling patient: Coding Level of Care Code None Diagnoses Tubo-ovarian abscess N70.93
--- NOTE | 2020-09-07 13:45 | Gynecologic Progress Note ---
Date of Service September 07, 2020 Assessment & Plan (1) Tubo-ovarian abscess: POD1 s/p Laparoscopic cyst drainage and pelvic washing for left adnexal mass -Pain managed w/ tylenol, toradol, morphine -Suspected TOA - currently on amp/gent/clinda now x 24 hrs, last febrile 07/09 2200 which was within the first 24 hrs of initiation -WBC downtrending 19 > 15 this AM -fluid cx growing gram neg bacilli, sensitivities pending. Continue current antibx x 48hrs and 24hrs afebrile, and sensitivities return to narrow down -cytology most c/w abscess, negative for malignancy -09/06 small bowel follow through w/o evidence of obstruction or leak -09/07 CT A/P demonstrating 6.4cm fluid collection suspicion for abscess as well as 3.9cm second abscess w/in fluid collection. No bowel obstruction -JAYMIE drain in RLQ, output improving since initial placement but still >30cc/hr . Pelvis was irrigated ~3L during procedure, current output is bloody/watery -hospitalist consult last evening w/ neg duplex, UA and CXR -Diet - ice chips -DVT ppx - SCDs, ambulation Dispo: Discussed CAT scan findings with radiology, abscesses are most consistent with tubo-ovarian abscess rather than a ruptured diverticuli or diverticulitis at this point. There are questionably 2 abscesses noted, unclear if they were previously connected and subsequently disrupted during procedure or if there were more prior to procedure that encompassed the previously noted 8 cm left adnexal mass. Based on discussion, we will continue to treat patient as TOA and continue triple antibiotics. Biggest dimension of abscess is <7cm which is reasonable for antibx treatment, though is at the upper limit so abscess may not completely resolve or may take longer. Patient has demonstrated clinical improvement since being started on them and white blood cell count has decreased as well. Plan to continue IV antibiotics for a total of at least 48 hours before transitioning to p.o. and depending on sensitivities given the extent of abscess and disruption of abscess. Discussed if there were to be worsening of clinical status though, would likely need transferred for IR or surgical drainage of the abscess to remove the source of infection. Patient and verbalized understanding. Ample time given for questions, answered to apparent satisfaction Admission and Anticipated Discharge Date Admission Date: September 06, 2020 Subjective Presented to review CT findings w/ pt and spouse via facetime. Beginning to get a little sore again, had pain meds prior to going to ct Physical Exam Constitutional: WD/WN, vitals as above Respiratory: normal respiratory effort; no respiratory distress and no labored breathing Psychiatric: A+Ox3, euthymic affect Results & Data ([facility]) Vital Signs (Past 12 Hours) Vital Signs Temp Pulse Resp BP Pulse Ox 09/07/20 07:21 98.8 F 103 H 14 108/63 94 09/07/20 02:21 98.8 F 103 H 20 93/64 L 93 PG Care Time/CCT Total # of Minutes Spent Total Time Spent with Patient: Total time spent is greater than 50% in coordination of care (as documented) at patient's floor/unit and/or counseling patient: Coding Level of Care Code None Diagnoses Tubo-ovarian abscess N70.93
[2020-09-07 16:10] LABS: Hematocrit (blood only) 29.3 % (37-47); Hemoglobin 10.1 g/dL (12.0-16.0)
[2020-09-07] MEDS: POTASSIUM CHLORIDE / WTR 10 MEQ/100 ML PLCT IV SCH ×4 (17:43→21:21)
--- NOTE | 2020-09-07 17:45 | Gynecologic Progress Note ---
Date of Service September 07, 2020 Assessment & Plan Admission and Anticipated Discharge Date Admission Date: September 06, 2020 Pt feeling better, will start clears tonight. If tolerated, can advance further in AM Subjective Pt feeling better, had large bowel movement, feels less bloated. Was up to the chair for a while. Pain adequately managed with pain meds. Denies fevers, chills, n/v, ROCK, CP, SOB Physical Exam Constitutional: WD/WN, vitals as above Respiratory: normal respiratory effort; no respiratory distress and no labored breathing Gastrointestinal (Abdomen): Inspection/Auscultation: abdomen normal to inspection and + abdomen distended (improved from prior exam) Percussion/Palpation: + abdomen tender (appropriately) and abdomen soft; no guarding Psychiatric: A+Ox3, euthymic affect Results & Data ([facility]) Vital Signs (Past 12 Hours) Vital Signs Temp Pulse Resp BP Pulse Ox 09/07/20 15:11 99.0 F 112 H 18 106/63 92 09/07/20 07:21 98.8 F 103 H 14 108/63 94 PG Care Time/CCT Total # of Minutes Spent Total Time Spent with Patient: Total time spent is greater than 50% in coordination of care (as documented) at patient's floor/unit and/or counseling patient: Coding Level of Care Code None
[2020-09-07] MEDS ORDERED: oxyCODONE HCL IR 5 MG TAB (IMMEDIATE RELEASE) PO PRN (22:12)
[2020-09-07] MEDS ORDERED: SIMETHICONE 80 MG CHEW PO PRN (22:12)
[2020-09-07] MEDS ORDERED: MoRPHine SULFATE 2 MG/ML CARP IV PRN (22:15)
[2020-09-08] MEDS: LACTATED RINGER'S 1,000 ML IV SCH ×4 (01:42→22:44)
[2020-09-08] MEDS: AMPICILLIN 2,000 MG in SODIUM CHLOR 0.9% AD-VAN 100 ML IV SCH ×2 (01:42→08:04)
[2020-09-08] MEDS: oxyCODONE HCL IR 5 MG TAB (IMMEDIATE RELEASE) PO PRN ×4 (02:23→17:56)
[2020-09-08] MEDS: GENTAMICIN SULFATE 260 MG in DEXTROSE 5% 100 ML IV SCH (05:08)
[2020-09-08] MEDS: CLINDAMYCIN 900 MG in DEXTROSE 5% 50 ML IV SCH (06:15)
--- NOTE | 2020-09-08 07:07 | Gynecologic Progress Note ---
Date of Service September 08, 2020 Assessment & Plan (1) Tubo-ovarian abscess: POD1 s/p Laparoscopic cyst drainage and pelvic washing for left adnexal mass -Pain managed w/ tylenol, toradol, oxycodone. Morphine available for breakthrough pain -Suspected TOA - currently on amp/gent/clinda now x 48 hrs, last febrile 07/09 2200 (within the first 24 hrs of antibx), now 24 hrs afebrile -WBC downtrending 19 > 15 yesterday, pending today -fluid cx growing gram neg bacilli, sensitivities pending. Continue current antibx x 48hrs and 24hrs afebrile, and sensitivities return to narrow down -cytology most c/w abscess, negative for malignancy -09/06 small bowel follow through w/o evidence of obstruction or leak -09/07 CT A/P demonstrating 6.4cm fluid collection suspicion for abscess as well as 3.9cm second abscess w/in fluid collection. No bowel obstruction -JAYMIE drain in RLQ, output improving since initial placement but still >30cc/hr. Pelvis was irrigated ~3L during procedure, current output is bloody/watery -hospitalist consult - neg duplex, UA and CXR -Diet - clears, will advance today -DVT ppx - SCDs, ambulation Admission and Anticipated Discharge Date Admission Date: September 06, 2020 Subjective No acute events overnight. Pt reports feeling much better this morning. Pain managed with new regimen of tylenol, toradol, oxycodone. Try to avoid morphine unless severe pain and ok. Tolerated clears. Voiding spontaneously, still passing gas. Less loose stools. Feels less bloated. Denies fevers, chills, n/v, ROCK, CP, SOB Physical Exam Constitutional: WD/WN, vitals as above Respiratory: normal respiratory effort, lungs clear to auscultation normal respiratory effort; no respiratory distress and no labored breathing Cardiovascular: RRR, no murmur, no edema Gastrointestinal (Abdomen): Inspection/Auscultation: abdomen normal to inspection, + abdomen distended (improved from prior exam), normal bowel sounds and + abdominal surgical drain present (RLQ) Percussion/Palpation: + abdomen tender (appropriately) and abdomen soft; no guarding and abdomen not rigid Psychiatric: A+Ox3, euthymic affect Results & Data ([place]) Vital Signs (Past 12 Hours) Vital Signs Temp Pulse Resp BP Pulse Ox 09/07/20 22:56 98.4 F 102 H 18 119/77 94 PG Care Time/CCT Total # of Minutes Spent Total Time Spent with Patient: Total time spent is greater than 50% in coordination of care (as documented) at patient's floor/unit and/or counseling patient: Coding Level of Care Code None Diagnoses Tubo-ovarian abscess N70.93
[2020-09-08] MEDS ORDERED: LACTATED RINGER'S 1,000 ML IV ONE (07:52)
--- NOTE | 2020-09-08 07:53 | Hospitalist Progress Note ---
Date of Service September 08, 2020 Assessment & Plan (1) Fever: 45 yo previously healthy GO s/p laparoscopic cyst drainage and pelvic washings with findings concerning for tuboovarian abscess (TOA). #Post operative fever in the setting of TOA vs. malignant cyst s/p drainage, likely due to the systemic response to drainage, on presentation meeting sepsis criteria Admitted postoperatively for severe left lower quadrant pain, fevers, chills, malaise. Small bowel study postop with no contrast extravasation and no SBO seen. She has improved overnight, in the ED she received Zosyn and then was put on triple therapy. UA, CXR and duplex ultrasound all negative. CT abdomen pelvis on 08/18 to demonstrating no evidence of bowel obstruction, 6.4 cm pelvic fluid collection containing air bubbles suspicious for abscess, U-shaped fluid collection within the cul-de-sac measuring 39 mm suspicious for second abscess, right lower quadrant surgical drain. -Continue amp/gent/clinda narrow pending speciation and sensitivities -Cultures demonstrating pansensitive E. coli narrow ABX per FIELD TECHNICAL ASSISTANT -Plan for discharge tomorrow -WBC is trending down -Pain control with Tylenol, Toradol, and Morphine -continue LR at 125/h, continues to be tachycardiac provided 1L bolus of LR -continue to follow vitals and clinical picture -advance to clears #Postoperative hemoglobin drop Patient with acute hemoglobin drop overnight, suspect likely secondary to dilutional. Will trend. -Trend H&H/CBC -Hgb:12.6 ->10.8 -> 10.2 -> 9.4 ->10.1 ->9.6 FENa: N.p.o. pending small bowel evaluation, and FIELD TECHNICAL ASSISTANT approval to advance diet Code Status: Full code DVT PPX: SCD's in the post operative setting, to consider Lovenox PT/OT: Not indicated Dispo: [employer] Patient is stable from a medical standpoint and recovering well. Family medicine will sign off at this point, please feel free to contact us with any additional questions or concerns Herrera Mitchell MD PGY 2, FCM This chart was completed utilizing [employer] voice recognition software. Grammatical errors, random word insertions, pronoun errors, and in complete sentences are an occasional consequence of the system. Any questions or concerns about the content, text, or information contained within the body of this dictation should be addressed directly to the physician for clarification. DVT prophylaxis: Diet: advanced as tolerated (2) Leukocytosis: (3) Sepsis: Admission and Anticipated Discharge Date Admission Date: September 06, 2020 Supervising Physician Co-Signing Physician Notes I also saw the patient with the resident physician and confirmed lorenz portions of the history and physical examination. I agree with the impression and plan as noted in the resident documentation. I also discussed the case with gynecology attending. Upon examination today, the patient is seated bedside. She tells us that she feels much better today. Exam 133/83, 111, 16, 37.3, 93% Alert and oriented, no acute distress. Cardiovascular regular but slightly tachycardic Respirations nonlabored Data WBC 15.43, slightly down from yesterday; peak was 19.83 on 09/06 Hemoglobin 9.6, down slightly from 10.1 yesterday Platelet count 444 Aspirate from the cyst is growing E. coli, maurice sensitivity. Blood cultures and urine cultures dated 09/05 demonstrate no growth. Impression and plan Tubo-ovarian abscess, status post laparoscopic drainage of cyst Leukocytosis Anemia Sinus tachycardia Thrombocytopenia, reactive Agree with de-escalating antimicrobial therapy, and transition to Augmentin upon discharge She appears euvolemic; I think her sinus tachycardia is her baseline. When I reviewed her outpatient office notes, her usual heart rate is around 100. Of note, she had a normal TSH in May of this year by her PCP. Subjective Patient lying in bed today in no acute distress, reports tolerating her diet, and some improvement in her immensely of diarrhea. Patient reports her pain is well controlled, she is voiding and slept well overnight. All questions answered, no acute concerns. Physical Exam Physical Exam: General: Lying in bed in no acute distress HEENT: Normocephalic atraumatic Neck: Normal to visual inspection, trachea midline Cardiac: Tachycardic otherwise regular rhythm, I did not appreciate any murmurs rubs or gallops, normal S1, normal S2, negative pedal edema, negative calf tenderness Respiratory: Clear to auscultation bilaterally with symmetrical chest expansion and no increased work of breathing I did not appreciate significant wheezes, rales, rhonchi GI: Soft, tender around the surgical sites, surgical sites are clean dry and intact, bowel sounds present, no distention MSK: Moves all extremities Results & Data Results & Data ([place]) Vital Signs (Past 12 Hours) Vital Signs Temp Pulse Resp BP Pulse Ox 09/08/20 07:20 36.8 C 107 H 16 127/82 94 09/07/20 22:56 36.9 C 102 H 18 119/77 94 Resident Activity Tracking Resident Involvement: Resident Care Provided Care Provided: Adult Hospital Medicine (1) Fever Fever type: unspecified Qualified Code(s): R50.9 - Fever, unspecified (2) Leukocytosis Leukocytosis type: unspecified Qualified Code(s): D72.829 - Elevated white blood cell count, unspecified
[2020-09-08 08:55] LABS: Basophils # (auto) 0.01 K/uL (0-0.2); Basophils % (auto) 0.1 %; Eosinophils # (auto) 0.02 K/uL (0-0.5); Eosinophils % (auto) 0.1 %; Hematocrit (blood only) 28.4 % (37-47); Hemoglobin 9.6 g/dL (12.0-16.0); Immature Granulocytes # (auto) 0.09 K/uL (0.00-0.02); Immature Granulocytes % (auto) 0.6 %; Lymphocytes # (auto) 0.72 K/uL (1.2-3.4); Lymphocytes % (auto) 4.7 %; Mean Corpuscular Hemoglobin 31.3 pg (25-34); Mean Corpuscular Hgb Conc 33.8 g/dL (32-36); Mean Corpuscular Volume 92.5 fL (80-100); Mean Platelet Volume 10.7 fL (7.4-10.4); Monocytes # (auto) 0.49 K/uL (0.11-0.59); Monocytes % (auto) 3.2 %; Neutrophils % (auto) 91.3 %; Platelet Count 444 K/uL (130-400); RDW Coefficient of Variation 13.2 % (11.5-14.5); Red Blood Count 3.07 M/uL (4.2-5.4); White Blood Count 15.43 K/uL (4.8-10.8)
[2020-09-08 09:21] LABS: Albumin Level 1.6 gm/dl (3.4-5.0); BUN Creatinine Ratio 15.3 (10-20); Calcium 8.1 mg/dl (8.5-10.1); Creatinine Clr Calc Pharmacy 81.6 ml/min; Est GFR (African American) 120.1; Est GFR (Non-African American) 103.7; Potassium 3.2 mmol/L (3.5-5.1)
[2020-09-08 09:23] LABS: Albumin Globulin Ratio 0.4 (0.9-2); Bilirubin,Total 0.3 mg/dl (0.2-1); Globulin 4.2 gm/dl (2.5-4.0); Total Protein 5.8 gm/dl (6.4-8.2)
--- NOTE | 2020-09-08 10:50 | Communication Note ---
Date of Service: September 08, 2020 Spoke with pharmacist. Now that we know we have a pansensitive E. coli, she recommends deescalation of therapy. Recommends Unasyn for IV now and then tra nsition to augmentin for home. Changes made. Patient notes she is doing much better today. Best day in two weeks. Tolerated small solid breakfast without n/v. Pain is controlled with oral pain meds. Start planning for d/c. Likely will go home with her drain so will begin drain teaching.
[2020-09-08] MEDS: AMPICILLIN/SULBACTAM SOD 3,000 MG in 0.9 % SODIUM CHLORIDE 100 ML IV SCH ×3 (11:10→22:44)
[2020-09-08] MEDS: POTASSIUM CHLORIDE CRTAB 20 MEQ TABCR PO SCH ×3 (11:33→15:52)
--- NOTE | 2020-09-08 17:30 | Electrocardiogram Report ---
Test Reason : Blood Pressure : / mmHG Vent. Rate : 131 BPM Atrial Rate : 131 BPM P-R Int : 126 ms QRS Dur : 070 ms QT Int : 306 ms P-R-T Axes : 046 088 051 degrees QTc Int : 451 ms Sinus tachycardia Otherwise normal ECG No previous ECGs available Confirmed by Bao Melendez ([id number]) on 09/08/2020 5:30:08 PM Referred By: REFERRED SELF Confirmed By:James Melendez
[2020-09-08] MEDS: KETOROLAC 30 MG/ML VIAL IV PRN (21:24)
[2020-09-09] MEDS: oxyCODONE HCL IR 5 MG TAB (IMMEDIATE RELEASE) PO PRN ×2 (04:42→11:35)
[2020-09-09] MEDS: AMPICILLIN/SULBACTAM SOD 3,000 MG in 0.9 % SODIUM CHLORIDE 100 ML IV SCH (05:48)
[2020-09-09 06:09] LABS: Eosinophils # (auto) 0.02 K/uL (0-0.5); Eosinophils % (auto) 0.2 %; Hemoglobin 9.6 g/dL (12.0-16.0); Immature Granulocytes # (auto) 0.07 K/uL (0.00-0.02); Immature Granulocytes % (auto) 0.7 %; Lymphocytes # (auto) 0.76 K/uL (1.2-3.4); Lymphocytes % (auto) 7.9 %; Mean Corpuscular Hemoglobin 31.5 pg (25-34); Mean Corpuscular Hgb Conc 34.3 g/dL (32-36); Mean Corpuscular Volume 91.8 fL (80-100); Monocytes # (auto) 0.59 K/uL (0.11-0.59); Monocytes % (auto) 6.1 %; Neutrophils # (auto) 8.24 K/uL (1.4-6.5); Neutrophils % (auto) 85.1 %; Platelet Count 465 K/uL (130-400); RDW Coefficient of Variation 12.9 % (11.5-14.5); RDW Standard Deviation 43.7 fL (36.4-46.3); Red Blood Count 3.05 M/uL (4.2-5.4); White Blood Count 9.68 K/uL (4.8-10.8)
[2020-09-09] MEDS: LACTATED RINGER'S 1,000 ML IV SCH ×2 (06:48→08:17)
[2020-09-09 06:53] LABS: Albumin Level 1.4 gm/dl (3.4-5.0); Calcium 7.5 mg/dl (8.5-10.1); Creatinine Clr Calc Pharmacy 100.6 ml/min; Est GFR (African American) 128.7; Potassium 3.5 mmol/L (3.5-5.1)
[2020-09-09 06:57] LABS: Albumin Globulin Ratio 0.4 (0.9-2); Bilirubin,Total 0.2 mg/dl (0.2-1); Globulin 3.8 gm/dl (2.5-4.0); Total Protein 5.2 gm/dl (6.4-8.2)
--- NOTE | 2020-09-09 07:23 | Gynecologic Progress Note ---
Date of Service September 09, 2020 Assessment & Plan (1) Tubo-ovarian abscess: Admission and Anticipated Discharge Date Admission Date: September 06, 2020 Patient has been afebrile for over 24 hours. Her wbc count today is down to 9.6. h/h stable. She has had 4 doses of unasyn and done well. Plan d/c iv antibiotics and change to augmentin which is the plan for home. will be sent to pharmacy to finish a 14 day course of antibiotics. Pateint spoke with Dr. Kaia sebastian today who is arranging outpatient f/u at [facility]. She will be going home with her JAYMIE drain. It continues to drain >200cc daily but it seems to be trending down. She has had teaching for the care of this. If she does not hear about f/u by [facility], she is to call our office to discuss her JAYMIE output. Will also give script for oxycodone. She will check her temp twice daily. If she has any change in her status, she is to call and return immediately. Patient expresses understanding of this plan. Subjective Patient continues to note improvement. No acute issues overnight. Her diarrhea has stopped, no n/v. Tolerating a regular diet. Passing gas. Voiding without difficulty. Pain controlled with oral pain meds. Physical Exam Constitutional: WD/WN, vitals as above Respiratory: normal respiratory effort, lungs clear to auscultation Cardiovascular: RRR, no murmur, no edema Gastrointestinal (Abdomen): soft, nd, appropriately tender, +bs. INcisions c/d/i. JAYMIE draining a white colored fluid Psychiatric: A+Ox3, euthymic affect Results & Data ([facility]) Vital Signs (Past 12 Hours) Vital Signs Temp Pulse Resp BP Pulse Ox 09/08/20 23:45 36.9 C 100 H 16 119/78 93 PG Care Time/CCT Total # of Minutes Spent Total Time Spent with Patient: Total time spent is greater than 50% in coordination of care (as documented) at patient's floor/unit and/or counseling patient: Coding Level of Care Code 17994 Subseq Hosp Care Lvl 2 Diagnoses Tubo-ovarian abscess N70.93
[2020-09-09] MEDS ORDERED: AMOXICILLIN/CLAVULANATE 875 MG TAB PO SCH (08:00)
--- NOTE | 2020-09-09 12:13 | Hospitalist Progress Note ---
Date of Service September 09, 2020 Assessment & Plan (1) Fever: Nicole Choi is a 45-year-old female with no pertinent past medical history who is admitted for a tubo-ovarian abscess Tubo-ovarian abscess with postoperative fever Surgical drainage with port placement 09/06 - Post-Op CT: No evidence of bowel obstruction. 6.4 cm pelvic fluid collection containing air bubbles suspicious for an abscess. U shaped fluid collection within the cul-de-sac measuring 39 mm suspicious for a second abscess. Right lower quadrant surgical drain. Small droplets of free intraperitoneal gas, likely postsurgical .The peritoneal fat appears slightly "dirty". This may could indicate peritonitis. Small bowel study shows no contrast extravasation, no SBO Initially treated with Zosyn, expanded to gent/amp/Clinda, narrowed to Unasyn. Anticipate conversion to Augmentin for outpatient treatment. Cultures showed pansensitive E. coli. Doing well, anticipate 14-day course of antibiotics treatment Leukocytosis resolved, afebrile overnight Tolerating p.o. Patient is doing well medically stable, feel she is medically safe for discharge plan okay by primary team. She is establishing with [facility] for follow-up Postop hemoglobin decreased Hemoglobin stable, 9.6 today Follows outpatient, no transfusion indicated FEN: Tolerating p.o., regular diet CODE STATUS: Full code DVT PPx: SCDs, ambulation (2) Leukocytosis: (3) Sepsis: Admission and Anticipated Discharge Date Admission Date: September 06, 2020 Supervising Physician Co-Signing Physician Notes I also saw the patient with the resident physician and confirmed lorenz portions of the history and physical examination. I agree with the impression and plan as noted in the resident documentation. Upon examination today, the patient is without complaints. She has very minimal abdominal discomfort at the incision site. She had a bowel movement. Exam 127/82, 131, 16, 37.1, 96% on room air Alert and oriented, no acute distress. Cardiovascular regular but slightly tachycardic Respirations nonlabored Data White count is now normalized at 9.68 Hemoglobin stable at 9.6 Platelet count 465 Aspirate from the cyst is growing E. coli, maurice sensitivity. Blood cultures and urine cultures dated 09/05 demonstrate no growth. Impression and plan Tubo-ovarian abscess, status post laparoscopic drainage of cyst Leukocytosis Anemia Sinus tachycardia Thrombocytopenia, reactive Agree with p.o. Augmentin She has appropriate follow-up and is eager for discharge She appears euvolemic; I think her sinus tachycardia is her baseline. When I reviewed her outpatient office notes, her usual heart rate is around 100. Of note, she had a normal TSH in May of this year by her PCP. Subjective Seen at bedside this morning. She reports "I feel great, the past 10 days. I am ready to go home ". Reports pain well controlled at time of assessment. No fever, chills, shortness of breath, chest pain. No nausea/vomiting/diarrhea. Reported ate breakfast this morning without pain. Would like to go home when ready. Reports that she needs materials for her drain dressing changes, otherwise no questions or concerns at time of visit. Review of Systems Review of Systems: All systems reviewed & are unremarkable except as noted in HPI & below Physical Exam Physical Exam: General: A&Ox3. NAD. Cooperative. HEENT: Atraumatic, normocephalic. Pulm: CTAB A&P. -wheezes, -rales, -rhonchi. Symmetrical chest rise. No increase work of breathing. No respiratory distress. Cardiac: Tachycardic, regular, -mrg. Radial pulses intact and symmetrical. Abdominal: Nontender, nondistended, soft. BS present. JAYMIE drain present at right abdomen, draining cloudy serous fluid without blood/serosanguineous fluid. No tenderness along drain site. Extremities: Trace pedal edema of the legs, pedal pulses intact. Distal extremity strength and sensation grossly intact. Results & Data Results & Data ([facility]) Vital Signs (Past 12 Hours) Vital Signs Temp Pulse Pulse Pulse Resp BP Pulse Ox 09/09/20 11:43 37.1 C 131 H 96 H 100 H 16 127/82 96 09/09/20 07:16 37.1 C 96 H 16 127/82 96 Resident Activity Tracking Resident Involvement: Resident Care Provided Care Provided: Adult Hospital Medicine (1) Fever Fever type: unspecified Qualified Code(s): R50.9 - Fever, unspecified (2) Leukocytosis Leukocytosis type: unspecified Qualified Code(s): D72.829 - Elevated white blood cell count, unspecified
--- NOTE | 2020-09-11 09:20 | Discharge Summary ---
Date of Service September 11, 2020 Admission HPI Per Admitting Provider 45yo G0 presents with persistent LLQ pain. LMP last , has had worsening LLQ pain over the past week or so. Had known small left ovarian cysts seen on US 06/2020. Pain became severe 2 days ago, presented to [facility], finding of 8cm ovarian cyst, appeared to be hemorrhagic cyst. She was recommended for outpatient followup, and then presented to her PCP earlier today. PCP ordered labs and recommended patient to come to [facility] ER because of worsening pain and WBC 14. Upon arrival to ER, WBC 18. Patient reports she has had severe LLQ pain, it waxes and wanes. Sometimes feels like sharp stabbing pain, other times improves. Describes it feeling like a knife. Prior to this episode, has never felt pain like this before. Also with nausea, vomiting. Has not eaten food since last week. Increased frequency of urination, but no pain with urination. Reports fevers 102 over the past few days. 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 No history of gynecologic problems in the past. No history of STI. No abnormal pap smears. Female partner. Discharge Data Consultations 09/05/20 22:26 Consult Obstetrics Stat 09/05/20 23:25 ED Decision to Admit Stat 09/07/20 12:03 Consult Hospitalist Routine Procedures Performed Operation Date: 09/06/20 02:00 Actual Procedures p Laparoscopic cyst drainage and pelvic washing.(Left) - Alexa Montilla DO Hospital Course (1) Tubo-ovarian abscess: Patient is a 45-year-old G0 who presented through the emergency department with severe left lower quadrant pain and known left ovarian cyst. She had been previously seen in a different ER 2 days prior with the same pain, an 8 cm ovarian cyst was discovered, she was given torsion precautions and discharged to follow-up with TELEHEALTH NURSE EDUCATOR outpatient. When her pain, nausea and vomiting, and intermittent fevers did not improve, she saw her primary care physician, who noted an elevated WBC and recommended she go to the emergency department at [facility]. Imaging in the ER for 20 revealed a normal uterus, normal right ovary. Left ovary measured 10.4 x 9.7 x 9.6 cm with a complex cyst measuring 8.4 x 7.2 x 8.1 cm. It was read as a possible hemorrhagic cyst, but nonspecific. She was given IV Zosyn in the ER. She was taken to the operating room for operative laparoscopy, out of concern for undiagnosed ovarian torsion given her clinical picture. Surgery revealed a large left adnexal mass, adhered to surrounding tissue-pelvic sidewall, underlying bowel. Upon attempt at displacement of the mass for better vi sualization with a blunt tipped probe, the mass began to drain whitish-green purulent fluid. The abdomen was copiously irrigated, and samples of the fluid were sent for culture and cytology. A JAYMIE drain was placed. The patient was admitted postop, and started on triple coverage antibiotics, ampicillin, gentamicin, clindamycin. Patient developed fever postoperatively, and out of concern for sepsis, the hospitalist team was also consulted. On postop day 2, cultures revealed pansensitive E. coli. Patient was switched to IV Unasyn. Patient continued to clinically improve, feeling better, eating and drinking. Patient was discharged to home on postop day 3, with afebrile status for greater than 24 hours, white blood cell count trended towards normal, H&H was stable. She received 4 doses total of Unasyn, and was discharged with p.o. Augmentin for 14-day course. She will follow-up within the week in the office to evaluate JAYMIE drain drainage and has been given instructions to check temperature twice daily. Oxycodone prescription for pain. Given the extensive adhesive disease and likely bowel involvement, the patient will be referred to TELEHEALTH NURSE EDUCATOR oncology at [facility] for further evaluation and likely surgical management. Our office has started this referral process. Coding Level of Care Code None Diagnoses Tubo-ovarian abscess N70.93
--- NOTE | 2020-09-21 08:04 | Coding Query ---
CODING QUERY To promote full compliance with coding requirements relating to patient care, provider participation is requested in all cases of right of way clearer uncertainty. Please assist us with the question(s) below: Coding Question(s): 1. Tubo-ovarian abscess is documented. Please specify below, in your clinical opinion, regarding the tubo-ovarian abscess. ( ) Acute Tubo-ovarian abscess ( ) Chronic Tubo-ovarian abscess ( ) Other Tubo-ovarian abscess. Please Specify ( x ) Unspecified Tubo-ovarian abscess 2. There is documentation regarding possible Sepsis beginning on addendum on Progress Note 09/06 of, "late entry in response to documentation query about concern for sepsis with TOA - treatment was initiated in ER with zosyn, changed to triple antibiotics postop - amp/gent/clinda", then Progress Notes 09/07, 09/08 and 09/09 document, "Post operative fever in the setting of TOA vs. malignant cyst s/p drainage, likely due to the systemic response to drainage, on presentation meeting sepsis criteria", and Discharge Summary documents, "The patient was admitted postop, and started on triple coverage antibiotics, ampicillin, gentamicin, clindamycin. Patient developed fever postoperatively, and out of concern for sepsis, the hospitalist team was also consulted. On postop day 2, cultures revealed pansensitive E. coli. Patient was switched to IV Unasyn". Please specify below, in your clinical opinion, regarding the concern for Sepsis documentation. ( x ) Possible Sepsis Present on admission. Please specify further below: (x ) Sepsis likely due to the Tubo-ovarian abscess ( ) Postoperative Sepsis complication of the surgery ( ) Sepsis likely due to Other: Please Specify ( ) Sepsis due to Unknown likely source ( ) Possible Sepsis Not Present on admission. Please specify further below: ( ) Sepsis likely due to the Tubo-ovarian abscess ( ) Postoperative Sepsis complication of the surgery ( ) Sepsis likely due to Other: Please Specify ( ) Sepsis due to Unknown likely source ( ) Other: Please Specify Physician's Response(s): Thank you Geovanna Perez Principal Diagnosis: "that condition established after study, to be chiefly responsible for occasioning the admission of the patient to the hospital for care." Co-Existing Principal Diagnosis: "when two or more diagnoses equally meet the criteria for principal diagnosis as determined by the circumstances of admission, diagnostic work up, and/or therapy provided, and the Alphabetic Index, Tabular List, or another coding guideline does not provide sequencing direction, any one of the diagnoses may be sequenced first." "When the physician has documented what appears to be a current diagnosis in the body of the record, but has not included the diagnosis in the final diagnostic statement, the physician should be asked whether the diagnosis should be added." (Source Coding Clinic 2 QTR90. p3-4) JOE
== END 2020-09-09 13:41 | disposition home or self-care (01) | DRG 855 ==
LOC: ED 18:03 → OR 09-06 01:09 → SUATTDRO 09-06 05:01 → 3E 09-06 05:01